=== PATIENT | female | born 1960 | race Caucasian/White ===

== ENCOUNTER → 2019-06-23 16:07 | Outpatient (BNVA) | payer MEDICARE, SELFPAY | PROVIDERS: Family Provider Family Medicine; PCP Family Medicine; Visit Provider Internal Medicine Rheumatology | DX: M05.79 Rheumatoid arthritis with rheumatoid factor of multiple sites without organ or systems involvement (principal); Z79.899 Other long term (current) drug therapy; M16.12 Unilateral primary osteoarthritis, left hip; M47.816 Spondylosis without myelopathy or radiculopathy, lumbar region; J44.9 Chronic obstructive pulmonary disease, unspecified; F17.210 Nicotine dependence, cigarettes, uncomplicated; I10 Essential (primary) hypertension | CPT/HCPCS: 36415; 80076; 82306; 82565; 85651; 86140; 99214 ==

== ENCOUNTER → 2019-06-23 17:46 | Outpatient (BNVA) | payer MEDICARE, SELFPAY | PROVIDERS: Family Provider Family Medicine; PCP Family Medicine; Visit Provider Internal Medicine Rheumatology | DX: Z79.899 Other long term (current) drug therapy (principal); M05.9 Rheumatoid arthritis with rheumatoid factor, unspecified; M05.79 Rheumatoid arthritis with rheumatoid factor of multiple sites without organ or systems involvement; M47.816 Spondylosis without myelopathy or radiculopathy, lumbar region; M16.12 Unilateral primary osteoarthritis, left hip; J44.9 Chronic obstructive pulmonary disease, unspecified; F17.210 Nicotine dependence, cigarettes, uncomplicated; I10 Essential (primary) hypertension | CPT/HCPCS: 36415; 80076; 82306; 82565; 85025; 85651; 86140; 99214 ==

== ENCOUNTER 2019-07-16 09:03 | Outpatient (CLI) | payer MEDICARE, SELFPAY ==
--- NOTE | 2019-07-16 09:10 | XR_ITS ---
WS: [id number] Lumbar spine with flexion, extension, and neutral lateral, 07/16/2019 Clinical Data: SPONDYLOLISTHESIS LUMBAR REGION Comparison: Lumbar spine, 03/30/2019. Findings: There are no compression fractures. There is degenerative disc narrowing at L5-S1. There is a minimal anterior subluxation of L4 on L5 of 0.3 cm. Mild osteoarthritic spurring of all the anterior lumbar vertebral bodies is noted. There is calcification in the wall of the abdominal aorta but no aneurysm is present. No limitation of motion or change in subluxation is seen on flexion or extension. XR/XR lumbar spine f/e only [id number] Impression: 1. Degenerative disc narrowing at L5-S1. 2. Minimal subluxation of L4 on L5 of 0.3 cm. 3. Moderate osteoarthritis of the anterior lumbar vertebral bodies. 4. No limitation of motion or change in subluxation on flexion or extension.
== END 2019-07-16 09:04 | disposition home or self-care (01) ==
LOC: RAD 09:07
PROVIDERS: Family Provider Family Medicine; PCP Family Medicine; Visit Provider Nurse Practitioner
DX: M43.16 Spondylolisthesis, lumbar region (principal); M47.897 Other spondylosis, lumbosacral region; M47.896 Other spondylosis, lumbar region
CPT/HCPCS: 72120

== ENCOUNTER → 2019-09-16 10:09 | Outpatient (BNVA) | payer MEDICARE, SELFPAY | PROVIDERS: Family Provider Family Medicine; PCP Family Medicine; Visit Provider Internal Medicine Rheumatology | DX: Z79.899 Other long term (current) drug therapy (principal) | CPT/HCPCS: 36415; 80076; 82565; 85025; 85651; 86140 ==

== ENCOUNTER → 2019-10-05 09:32 | Outpatient (BNVA) | payer MEDICARE, SELFPAY | PROVIDERS: Family Provider Family Medicine; PCP Family Medicine; Referring Provider Specialist; Visit Provider Anesthesiology Pain Medicine | DX: M54.42 Lumbago with sciatica, left side (principal); M43.16 Spondylolisthesis, lumbar region; M54.9 Dorsalgia, unspecified; F17.210 Nicotine dependence, cigarettes, uncomplicated; Z79.891 Long term (current) use of opiate analgesic | CPT/HCPCS: 99204 ==

== ENCOUNTER → 2019-10-26 13:40 | Outpatient (BNVA) | payer MEDICARE, SELFPAY | PROVIDERS: Family Provider Family Medicine; PCP Family Medicine; Visit Provider Anesthesiology Pain Medicine | DX: M47.816 Spondylosis without myelopathy or radiculopathy, lumbar region (principal); M54.9 Dorsalgia, unspecified; F17.210 Nicotine dependence, cigarettes, uncomplicated | CPT/HCPCS: 64493; 64494; 64495; J2001; J3490 ==

== ENCOUNTER → 2019-11-10 09:47 | Outpatient (BNVA) | payer MEDICARE, SELFPAY | PROVIDERS: Family Provider Family Medicine; PCP Family Medicine; Visit Provider Anesthesiology Pain Medicine | DX: M47.816 Spondylosis without myelopathy or radiculopathy, lumbar region (principal); M51.16 Intervertebral disc disorders with radiculopathy, lumbar region; M43.16 Spondylolisthesis, lumbar region; M51.17 Intervertebral disc disorders with radiculopathy, lumbosacral region; M54.9 Dorsalgia, unspecified; F17.210 Nicotine dependence, cigarettes, uncomplicated; Z79.891 Long term (current) use of opiate analgesic | CPT/HCPCS: 99214 ==

== ENCOUNTER → 2019-11-25 12:57 | Outpatient (BNVA) | payer MEDICARE, SELFPAY | PROVIDERS: Family Provider Family Medicine; PCP Family Medicine; Visit Provider Anesthesiology Pain Medicine | DX: M51.17 Intervertebral disc disorders with radiculopathy, lumbosacral region (principal); M54.9 Dorsalgia, unspecified; F17.210 Nicotine dependence, cigarettes, uncomplicated; Z79.891 Long term (current) use of opiate analgesic | CPT/HCPCS: 64483; 64484; J1040; J3490 ==

== ENCOUNTER → 2019-12-09 09:36 | Outpatient (BNVA) | payer MEDICARE, SELFPAY | PROVIDERS: Family Provider Family Medicine; PCP Family Medicine; Visit Provider Anesthesiology Pain Medicine | DX: M51.16 Intervertebral disc disorders with radiculopathy, lumbar region (principal); M51.17 Intervertebral disc disorders with radiculopathy, lumbosacral region; M43.16 Spondylolisthesis, lumbar region; M47.816 Spondylosis without myelopathy or radiculopathy, lumbar region; M54.9 Dorsalgia, unspecified; F17.210 Nicotine dependence, cigarettes, uncomplicated; Z79.891 Long term (current) use of opiate analgesic | CPT/HCPCS: 99213; 99214 ==

== ENCOUNTER → 2019-12-15 12:34 | Outpatient (BNVA) | payer MEDICARE, SELFPAY | PROVIDERS: Family Provider Family Medicine; PCP Family Medicine; Visit Provider Anesthesiology Pain Medicine | DX: M47.816 Spondylosis without myelopathy or radiculopathy, lumbar region (principal); M54.9 Dorsalgia, unspecified; F17.210 Nicotine dependence, cigarettes, uncomplicated | CPT/HCPCS: 64493; 64494; 64495; J3490 ==

== ENCOUNTER → 2019-12-31 08:54 | Outpatient (BNVA) | payer MEDICARE, SELFPAY | PROVIDERS: Family Provider Family Medicine; PCP Family Medicine; Visit Provider Specialist | DX: G43.711 Chronic migraine without aura, intractable, with status migrainosus (principal); M51.17 Intervertebral disc disorders with radiculopathy, lumbosacral region | CPT/HCPCS: 64615; J0585 ==

== ENCOUNTER → 2020-01-12 09:03 | Outpatient (BNVA) | payer MEDICARE, SELFPAY | PROVIDERS: Family Provider Family Medicine; PCP Family Medicine; Visit Provider Anesthesiology Pain Medicine | DX: M51.16 Intervertebral disc disorders with radiculopathy, lumbar region (principal); M47.816 Spondylosis without myelopathy or radiculopathy, lumbar region; M43.16 Spondylolisthesis, lumbar region; M51.17 Intervertebral disc disorders with radiculopathy, lumbosacral region; M54.9 Dorsalgia, unspecified; F17.210 Nicotine dependence, cigarettes, uncomplicated; Z79.899 Other long term (current) drug therapy | CPT/HCPCS: 99213 ==

== ENCOUNTER → 2020-03-23 13:23 | Outpatient (BNVA) | payer MEDICARE, SELFPAY | PROVIDERS: Family Provider Family Medicine; PCP Family Medicine; Visit Provider Anesthesiology Pain Medicine | DX: M47.816 Spondylosis without myelopathy or radiculopathy, lumbar region (principal); M54.9 Dorsalgia, unspecified; F17.210 Nicotine dependence, cigarettes, uncomplicated | CPT/HCPCS: 64635; 64636; J1030 ==

== ENCOUNTER → 2020-04-08 10:50 | Outpatient (BNVA) | payer MEDICARE, SELFPAY | PROVIDERS: Family Provider Family Medicine; PCP Family Medicine; Visit Provider Anesthesiology Pain Medicine | DX: M51.16 Intervertebral disc disorders with radiculopathy, lumbar region (principal); M43.16 Spondylolisthesis, lumbar region; M47.816 Spondylosis without myelopathy or radiculopathy, lumbar region; M51.17 Intervertebral disc disorders with radiculopathy, lumbosacral region; M54.9 Dorsalgia, unspecified; M25.552 Pain in left hip; F17.210 Nicotine dependence, cigarettes, uncomplicated; Z79.891 Long term (current) use of opiate analgesic | CPT/HCPCS: 99213 ==

== ENCOUNTER → 2020-05-13 10:04 | Outpatient (BNVA) | payer MEDICARE, SELFPAY | PROVIDERS: Family Provider Family Medicine; PCP Family Medicine; Visit Provider Anesthesiology Pain Medicine | DX: G89.29 Other chronic pain (principal); M54.9 Dorsalgia, unspecified; M47.816 Spondylosis without myelopathy or radiculopathy, lumbar region; M51.16 Intervertebral disc disorders with radiculopathy, lumbar region; M51.17 Intervertebral disc disorders with radiculopathy, lumbosacral region; M43.16 Spondylolisthesis, lumbar region; M79.605 Pain in left leg; Z79.899 Other long term (current) drug therapy | CPT/HCPCS: 99214; 99215 ==

== ENCOUNTER → 2020-05-19 13:54 | Outpatient (BNVA) | payer MEDICARE, SELFPAY | PROVIDERS: Family Provider Family Medicine; PCP Family Medicine; Visit Provider Internal Medicine Rheumatology | DX: M05.79 Rheumatoid arthritis with rheumatoid factor of multiple sites without organ or systems involvement (principal); Z79.899 Other long term (current) drug therapy; Z11.1 Encounter for screening for respiratory tuberculosis; M17.0 Bilateral primary osteoarthritis of knee; M47.816 Spondylosis without myelopathy or radiculopathy, lumbar region; M79.18 Myalgia, other site; J44.9 Chronic obstructive pulmonary disease, unspecified; I10 Essential (primary) hypertension; F17.210 Nicotine dependence, cigarettes, uncomplicated | CPT/HCPCS: 36415; 80076; 82565; 85025; 85651; 86140; 86480; 99214 ==

== ENCOUNTER → 2020-05-24 13:20 | Outpatient (BNVA) | payer MEDICARE, SELFPAY | PROVIDERS: Family Provider Family Medicine; PCP Family Medicine; Visit Provider Anesthesiology Pain Medicine | DX: M47.816 Spondylosis without myelopathy or radiculopathy, lumbar region (principal); M54.9 Dorsalgia, unspecified; Z79.891 Long term (current) use of opiate analgesic; F17.210 Nicotine dependence, cigarettes, uncomplicated | CPT/HCPCS: 64493; 64494; 64495; J1040; J3490 ==

== ENCOUNTER → 2020-06-29 09:40 | Outpatient (BNVA) | payer MEDICARE, SELFPAY | PROVIDERS: Family Provider Family Medicine; PCP Family Medicine; Visit Provider Anesthesiology Pain Medicine | DX: M51.16 Intervertebral disc disorders with radiculopathy, lumbar region (principal); M51.17 Intervertebral disc disorders with radiculopathy, lumbosacral region; M54.9 Dorsalgia, unspecified; M47.816 Spondylosis without myelopathy or radiculopathy, lumbar region; F17.210 Nicotine dependence, cigarettes, uncomplicated; Z79.899 Other long term (current) drug therapy; Z79.891 Long term (current) use of opiate analgesic | CPT/HCPCS: 99214 ==

== ENCOUNTER → 2020-07-28 09:56 | Outpatient (BNVA) | payer MEDICARE, SELFPAY | PROVIDERS: Family Provider Family Medicine; PCP Family Medicine; Visit Provider Specialist | DX: G43.711 Chronic migraine without aura, intractable, with status migrainosus (principal); M51.17 Intervertebral disc disorders with radiculopathy, lumbosacral region; F17.210 Nicotine dependence, cigarettes, uncomplicated | CPT/HCPCS: 64615; J0585 ==

== ENCOUNTER 2020-08-24 06:00 | Outpatient (RCR) | payer MEDICARE, SELFPAY | END 2020-09-02 23:59 | disposition home or self-care (01) | LOC: SPT 06:00 | PROVIDERS: PCP Family Medicine; Referring Provider Family Medicine; Visit Provider Family Medicine | DX: M25.512 Pain in left shoulder (principal) | CPT/HCPCS: 97162 ==

== ENCOUNTER 2020-08-24 13:15 | Outpatient (CLI) | payer MEDICARE, SELFPAY ==
--- NOTE | 2020-08-24 13:55 | MR_ITS ---
WS: [id number] MRI LUMBAR SPINE NONCONTRAST HISTORY: BACK PAIN COMPARISON: 04/22/2019 TECHNIQUE: Sagittal and axial multisequence imaging is submitted. L4 anterolisthesis by 4 mm similar to the prior study. No marrow edema or fracture. Mild disc space narrowing and desiccation throughout the lumbar spine. Conus terminates normally at L1-2 disc level. L1-L2: Mild annular disc bulge and fluid in the facet joints. No stenosis. L2-L3: Normal. L3-L4: Normal. L4-L5: Mild annular disc bulging with mild ligamentum flavum disease and facet arthritis. Disc bulge is slightly greatest into the LEFT foramen similar to the prior study with encroachment upon the LEFT L4 nerve root. Mild LEFT foraminal narrowing. No change since the prior study. L5-S1: Mild diffuse annular disc bulging and facet arthritis. Mild LEFT foraminal narrowing. MR/MR lumbar spine wo con* [id number] IMPRESSION: 1. L4 anterolisthesis by 4 mm is stable. 2. Mild LEFT foraminal narrowing at L4-5 due to disc and osteophyte encroachme nt. Small disc protrusion extends into the LEFT L4-5 foramen abutting the L4 ne rve root. Similar to the prior study. 3. Mild LEFT foraminal narrowing at L5-S1.
== END 2020-08-24 13:16 | disposition home or self-care (01) ==
PROVIDERS: PCP Family Medicine; Visit Provider Family Medicine
DX: M51.26 Other intervertebral disc displacement, lumbar region (principal); M25.78 Osteophyte, vertebrae
CPT/HCPCS: 72148

== ENCOUNTER → 2020-10-18 13:00 | Outpatient (BNVA) | payer MEDICARE, SELFPAY | PROVIDERS: PCP Family Medicine; Visit Provider Internal Medicine Rheumatology | DX: M05.79 Rheumatoid arthritis with rheumatoid factor of multiple sites without organ or systems involvement (principal); M15.9 Polyosteoarthritis, unspecified; M47.816 Spondylosis without myelopathy or radiculopathy, lumbar region; Z79.899 Other long term (current) drug therapy; I10 Essential (primary) hypertension; J44.9 Chronic obstructive pulmonary disease, unspecified; F17.210 Nicotine dependence, cigarettes, uncomplicated | CPT/HCPCS: 99214 ==

== ENCOUNTER 2020-10-19 11:46 | Outpatient (CLI) | payer MEDICARE, SELFPAY ==
--- NOTE | 2020-10-19 11:51 | XR_ITS ---
WS: [id number] DEXA (DUAL ENERGY X-RAY ABSORPTIOMETRY) Bone mineral density was performed using a [employer] machine. HISTORY: POST MENOPAUSAL COMPARISON: None available. Lumbar spine BMD (L1-L4): 1.154 g/cm2 T score: -0.2 Z score: 0.0 Total hip BMD: Left: 0.940 g/cm2. T score: -0.5 Z score: -0.3 Right: 0.987 g/cm2. T score: -0.2 Z score: 0.0 10 year probability of a major osteoporotic fracture is 14%. XR/XR DEXA axial skeleton* [id number] IMPRESSION: NORMAL BONE MINERAL DENSITY based upon the WHO classification for females.
== END 2020-10-19 11:47 | disposition home or self-care (01) ==
PROVIDERS: PCP Family Medicine; Visit Provider Family Medicine
DX: Z78.0 Asymptomatic menopausal state (principal)
CPT/HCPCS: 77080

== ENCOUNTER → 2021-01-05 13:56 | Outpatient (BNVA) | payer MEDICARE, SELFPAY | PROVIDERS: PCP Family Medicine; Visit Provider Internal Medicine | DX: Z71.89 Other specified counseling (principal); Z79.899 Other long term (current) drug therapy; M05.79 Rheumatoid arthritis with rheumatoid factor of multiple sites without organ or systems involvement; M47.816 Spondylosis without myelopathy or radiculopathy, lumbar region | CPT/HCPCS: 36415; 80076; 82565; 85025; 86140 ==

== ENCOUNTER → 2021-01-12 11:41 | Outpatient (BNVA) | payer MEDICARE, SELFPAY | PROVIDERS: PCP Family Medicine; Visit Provider Specialist | DX: G43.709 Chronic migraine without aura, not intractable, without status migrainosus (principal); F17.210 Nicotine dependence, cigarettes, uncomplicated | CPT/HCPCS: 64615; J0585 ==

== ENCOUNTER → 2021-03-03 10:40 | Outpatient (BNVA) | payer MEDICARE, SELFPAY | PROVIDERS: PCP Family Medicine; Visit Provider Internal Medicine Rheumatology | DX: M05.79 Rheumatoid arthritis with rheumatoid factor of multiple sites without organ or systems involvement (principal); Z79.899 Other long term (current) drug therapy; M19.90 Unspecified osteoarthritis, unspecified site | CPT/HCPCS: 36415; 80076; 82565; 85025; 86140 ==

== ENCOUNTER 2021-03-13 10:55 | Outpatient (CLI) | payer MEDICARE, SELFPAY ==
--- NOTE | 2021-03-13 11:05 | CT_ITS ---
WS: [id number] LDCT LUNG CANCER SCREENING HISTORY: NICOTINE DEPENDENCE TECHNIQUE: Axial imaging performed from the apices to 1 cm below the costophrenic angles. Coronal and sagittal reformats are submitted with axial MIP series. All CT scans at [facility] use at least one of these dose optimization techniques: automated exposure control; mA and/or kV adjustment per patient size (includes targeted exams where dose is matched to clinical indication); or iterativ e reconstruction. DLP: 56.17 mGy.cm DIvol: 1.58 mGy COMPARISON: None available. Diagnostic quality: Satisfactory Lung Nodules: No pulmonary nodule or endobronchial lesion. Lungs: Very minimal area of atelectasis or scar at the RIGHT costophrenic angle. Heart: Normal size heart. Moderate coronary artery calcification. No pericardial effusion. Other findings: Mild atherosclerosis aorta. No adenopathy. CT/CT lung screening [id number] IMPRESSION: LUNG-RADS: 1-Negative FOLLOW UP: 12 Month: Continue annual screening with LDCT OTHER FINDINGS (S MODIFIER): None.
[2021-03-13 11:48] LABS: Basophils # 0.1 10^3/uL (0.0-0.1); Basophils % 1.4 %; Eosinophils # 0.1 10^3/uL (0.0-0.8); Eosinophils % 3.4 %; Hematocrit 44.7 % (37.0-47.0); Hemoglobin 15.5 g/dL (11.5-15.3); Lymphocytes % 47.7 %; Mean Corpuscular HGB Conc 34.7 g/dL (30.0-36.0); Mean Corpuscular Hemoglobin 32.8 pg (28.0-34.0); Mean Corpuscular Volume 94.5 fl (81-99); Mean Platelet Volume 12.8 fL (7.4-10.4); Monocytes # 0.7 10^3/uL (0.2-0.9); Monocytes % 15.8 %; Neutrophils # 1.31 10^3/uL (1.8-7.7); Neutrophils % 31.5 %; Nucleated Red Blood Cells % 0 %; Platelet Count 142 10^3/cmm (130-400); Red Blood Count 4.73 10^6/uL (4.1-5.3); Red Cell Distribution Width 12.6 % (12.1-15.1); White Blood Count 4.2 10^3/uL (4.0-10.0)
--- NOTE | 2021-03-13 11:50 | MM_ITS ---
WS: [id number] BILATERAL SCREENING DIGITAL MAMMOGRAM WITH CAD HISTORY: SCREENING COMPARISON: 10/16/2013 and 03/17/2000 oh Bilateral CC and MLO views submitted. Computer aided detection analyzed. Breast composition: There are scattered areas of fibroglandular density. No suspicious masses, microc alcifications or architectural distortion. Benign calcifications scattered throughout each breast. MM/[place] [id number] IMPRESSION: BI-RADS: 2-Benign FOLLOW UP: 1 Year Follow-up
== END 2021-03-13 10:56 | disposition home or self-care (01) ==
PROVIDERS: Internal Medicine Rheumatology; PCP Family Medicine; Visit Provider Family Medicine
DX: Z12.31 Encounter for screening mammogram for malignant neoplasm of breast (principal); Z12.2 Encounter for screening for malignant neoplasm of respiratory organs; D72.9 Disorder of white blood cells, unspecified; F17.210 Nicotine dependence, cigarettes, uncomplicated
CPT/HCPCS: 36415; 71271; 77067; 85025

== ENCOUNTER 2021-08-25 16:17 | Outpatient (CLI) | payer MEDICARE, SELFPAY ==
[2021-08-25 17:46] LABS: Basophils # 0.1 10^3/uL (0.0-0.1); Eosinophils # 0.1 10^3/uL (0.0-0.8); Eosinophils % 0.9 %; Hematocrit 48.3 % (37.0-47.0); Hemoglobin 16.8 g/dL (11.5-15.3); Lymphocytes % 42.7 %; Mean Corpuscular HGB Conc 34.8 g/dL (30.0-36.0); Mean Corpuscular Hemoglobin 31.6 pg (28.0-34.0); Monocytes # 0.8 10^3/uL (0.2-0.9); Monocytes % 11.7 %; Neutrophils # 3.03 10^3/uL (1.8-7.7); Neutrophils % 43.4 %; Nucleated Red Blood Cells % 0 %; Platelet Count 169 10^3/cmm (130-400); Red Blood Count 5.31 10^6/uL (4.1-5.3); Red Cell Distribution Width 13.2 % (12.1-15.1)
[2021-08-25 17:56] LABS: Mean Platelet Volume 13.2 fL (7.4-10.4)
[2021-08-25 18:04] LABS: Alanine Aminotransferase 15 U/L (0-33); Albumin Level 4.8 g/dL (3.5-5.2); Alkaline Phosphatase 71 IU/L (35-105); Aspartate Amino Transferase 21 U/L (0-32); Globulin 3.5 g/dL (1.3-4.6); Glomerular Filtration Rate 63.2 mL/min (90-130); Total Bilirubin 0.5 mg/dL (0.15-1.2); Total Protein 8.3 g/dL (6.6-8.7)
== END 2021-08-25 16:18 | disposition home or self-care (01) ==
LOC: LAB 16:22
PROVIDERS: PCP Family Medicine; Visit Provider Internal Medicine Rheumatology
DX: M05.79 Rheumatoid arthritis with rheumatoid factor of multiple sites without organ or systems involvement (principal); M19.90 Unspecified osteoarthritis, unspecified site; Z79.899 Other long term (current) drug therapy
CPT/HCPCS: 80076; 82565; 85025; 86140

== ENCOUNTER → 2021-09-12 11:31 | Outpatient (BNVA) | payer MEDICARE, SELFPAY | PROVIDERS: PCP Family Medicine; Visit Provider Internal Medicine Cardiovascular Disease | DX: R00.2 Palpitations (principal); R00.0 Tachycardia, unspecified; I49.3 Ventricular premature depolarization | CPT/HCPCS: 93225 ==

== ENCOUNTER 2021-12-01 11:46 | Outpatient (CLI) | payer MEDICARE, SELFPAY ==
--- NOTE | 2021-12-01 12:00 | USCV_ITS ---
Nimco Chaparro Age: 61 Gender: F : 1960 Exam Date: 12/01/2021 12:14 Ordering Phys: Chapin Julio MD Technologist: Maddie Mcclain Exam Location: [facility] [place] Indication: PVCs BP: 154 / 84 HR: 57 Rhythm: Sinus Technical Quality: Technically difficult study MEASUREMENTS (Male / Female) Normal Values 2D ECHO LV Diastolic Diameter PLAX 3.4 cm 4.2 - 5.9 / 3.9 - 5.3 cm LV Systolic Diameter PLAX 1.6 cm IVS Diastolic Thickness 1.3 cm 0.6 - 1.0 / 0.6 - 0.9 cm IVS Systolic Thickness 1.5 cm LVPW Diastolic Thickness 0.7 cm 0.6 - 1.0 / 0.6 - 0.9 cm LVPW Systolic Thickness 1.5 cm LV Ejection Fraction 2D Teich 84.6 % LV Ejection Fraction MOD 2C 71.5 % LV Ejection Fraction 2C AL 72.1 % LA Diameter 2.8 cm LA Width 1.9 cm LA Height 4.6 cm RA Width 3.2 cm RA Height 3.8 cm IVC Diameter 1.2 cm DOPPLER AV Peak Velocity 104.0 cm/s LVOT Peak Velocity 108.0 cm/s MV Peak Velocity 96.0 cm/s MV Area PHT 3.9 cm squared Mitral E to A Ratio 1.0 MV E' Velocity 49.5 cm/s Mitral E to MV E' Ratio 11.2 Mitral E to LV E' Lateral Ratio 10.9 Mitral E to LV E' Septal Ratio 11.5 TR Peak Velocity 92.0 cm/s TR Peak Gradient 3.4 mmHg Right Atrial Pressure 3.0 mmHg Pulmonary Artery Systolic Pressu 6.4 mmHg PV Peak Velocity 73.0 cm/s RV Acceleration Time 0.1 s FINDINGS Left Ventricle Somewhat technically difficult study. Limited parasternal views. Normal left ventricular size and function. Ejection fraction 65%. Normal diastolic function. Right Ventricle The right ventricle is normal in size and function. Normal right ventricular systolic pressure. Right Atrium The right atrium is normal in size. Left Atrium The left atrium is normal in size. Mitral Valve Structurally normal mitral valve without significant stenosis or prolapse. There is no mitral regurgitation. Aortic Valve Tricuspid Valve Structurally normal tricuspid valve without significant stenosis or regurgitation. Pulmonary artery systolic pressure is normal. Pulmonic Valve Structurally normal pulmonic valve without significant stenosis. There is no pulmonic regurgitation. Pericardium Normal pericardium without effusion. Aorta Normal ascending aorta dimension. IVC The inferior vena cava pulmonary and hepatic veins appear normal. CONCLUSIONS Somewhat technically difficult study. Limited parasternal views. Normal left ventricular size and function. Ejection fraction 65%. Normal diastolic function. Normal transthoracic echocardiogram. There are no prior echocardiogram studies to compare. Dr. Beto Kinsey MD (Electronically Signed) Final Date: 01 December 2021 14:11 S
== END 2021-12-01 11:47 | disposition home or self-care (01) ==
PROVIDERS: PCP Family Medicine; Visit Provider Family Medicine
DX: I49.3 Ventricular premature depolarization (principal)
CPT/HCPCS: 93306

== ENCOUNTER → 2021-12-07 12:02 | Outpatient (BNVA) | payer MEDICARE, SELFPAY | PROVIDERS: PCP Family Medicine; Visit Provider Specialist | DX: G43.711 Chronic migraine without aura, intractable, with status migrainosus (principal) | CPT/HCPCS: 64615; J0585 ==

== ENCOUNTER → 2022-01-23 09:41 | Outpatient (BNVA) | payer MEDICARE, SELFPAY | PROVIDERS: PCP Family Medicine; Visit Provider Internal Medicine Rheumatology | DX: M05.79 Rheumatoid arthritis with rheumatoid factor of multiple sites without organ or systems involvement (principal); Z79.899 Other long term (current) drug therapy; Z71.89 Other specified counseling; M15.9 Polyosteoarthritis, unspecified; I10 Essential (primary) hypertension; J44.9 Chronic obstructive pulmonary disease, unspecified; Z72.0 Tobacco use; M79.18 Myalgia, other site; F31.9 Bipolar disorder, unspecified; D47.2 Monoclonal gammopathy | CPT/HCPCS: 36415; 73502; 80076; 82565; 85025; 86140; 99214 ==

== ENCOUNTER → 2022-03-08 10:56 | Outpatient (BNVA) | payer MEDICARE, SELFPAY | PROVIDERS: PCP Family Medicine; Visit Provider Specialist | DX: G43.711 Chronic migraine without aura, intractable, with status migrainosus (principal) | CPT/HCPCS: 64615 ==

== ENCOUNTER 2022-03-26 07:59 | Outpatient (CLI) | payer MEDICARE, SELFPAY ==
--- NOTE | 2022-03-26 08:09 | CT_ITS ---
WS: [id number] LDCT LUNG CANCER SCREENING TECHNIQUE: Noncontrast CT of the chest with coronal and sagittal reformatted images. CLINICAL INFORMATION: NICOTINE DEPENDENCE, CIGARETTES COMPARISON: CT March 13, 2021 DLP: 78.79 mGy.cm DIvol: Mean CTDIvol: 1.60 (mGy) All CT scans at [facility] use at least one of these dose optimization techniques: automat ed exposure control; mA and/or kV adjustment per patient size (includes targeted exams where dose is matched to clinical indication); or iterative reconstruction. FINDINGS: Moderate chronic emphysematous changes. 3 mm noncalcified nodule RIGHT upper lobe subpleural. Slight hazy opacity or fibrosis subpleural RIGHT upper lobe laterally. No acute pulmonary infiltrates. No focal pneumonia or pleural fluid. Normal caliber thoracic aorta. A ortic calcification. Coronary calcification. No axillary lymphadenopathy. No mediastinal or hilar lym phadenopathy. Adrenal glands are normal. Fatty atrophy of the pancreas. CT/CT lung screening [id number] IMPRESSION: LUNG-RADS: 2-Benign Appearance or Behavior FOLLOW UP: 12 Month: Continue annual screening with LDCT
== END 2022-03-26 08:00 | disposition home or self-care (01) ==
PROVIDERS: PCP Family Medicine; Visit Provider Family Medicine
DX: Z12.2 Encounter for screening for malignant neoplasm of respiratory organs (principal); F17.210 Nicotine dependence, cigarettes, uncomplicated
CPT/HCPCS: 71271

== ENCOUNTER 2022-03-28 12:04 | Outpatient (CLI) | payer MEDICARE, SELFPAY ==
[2022-03-28 12:31] LABS: Basophils # 0.1 10^3/uL (0.0-0.1); Basophils % 1.5 %; Eosinophils # 0.1 10^3/uL (0.0-0.8); Hematocrit 45.7 % (37.0-47.0); Hemoglobin 15.6 g/dL (11.5-15.3); Lymphocytes # 1.5 10^3/uL (0.8-4.8); Lymphocytes % 28.8 %; Mean Corpuscular HGB Conc 34.1 g/dL (30.0-36.0); Mean Corpuscular Hemoglobin 31.7 pg (28.0-34.0); Mean Corpuscular Volume 92.9 fl (81-99); Mean Platelet Volume 12.4 fL (7.4-10.4); Monocytes # 0.3 10^3/uL (0.2-0.9); Monocytes % 4.8 %; Neutrophils # 3.29 10^3/uL (1.8-7.7); Neutrophils % 63.7 %; Nucleated Red Blood Cells % 0 %; Platelet Count 153 10^3/cmm (130-400); Red Blood Count 4.92 10^6/uL (4.1-5.3); Red Cell Distribution Width 12.5 % (12.1-15.1); White Blood Count 5.2 10^3/uL (4.0-10.0)
[2022-03-28 12:33] LABS: Erythrocyte Sedimentation Rate 14 mm/hr (0-15)
[2022-03-28 12:35] VITALS: BP 150/94; PULSE 65; RESP 18; TEMP 36.1; O2SAT 94
[2022-03-28 12:49] LABS: Alanine Aminotransferase 10 U/L (0-33); Albumin Level 4.1 g/dL (3.5-5.2); Alkaline Phosphatase 82 U/L (35-105); Aspartate Amino Transferase 15 U/L (0-32); Globulin 3.7 g/dL (1.3-4.6); Glomerular Filtration Rate 63.2 mL/min (90-130); Total Bilirubin 0.3 mg/dL (0.15-1.2); Total Protein 7.8 g/dL (6.6-8.7)
[2022-03-28] MEDS: sodium chloride 0.9% 250 ML 50 ML IV (12:59)
[2022-03-28] MEDS: acetaminophen 325 mg Tablet 650 MG PO (13:00)
[2022-03-28] MEDS: diphenhydrAMINE 50 mg/mL SDV 1mL 25 MG IVP (13:01)
[2022-03-28 14:44] VITALS: BP 161/95; PULSE 60; RESP 18; TEMP 36.2; O2SAT 94
== END 2022-03-28 12:05 | disposition home or self-care (01) ==
PROVIDERS: PCP Family Medicine; Visit Provider Internal Medicine Rheumatology
DX: M05.79 Rheumatoid arthritis with rheumatoid factor of multiple sites without organ or systems involvement (principal)
CPT/HCPCS: 80076; 82565; 85025; 85651; 96365; 96375; J1200; J2920; J3262; J7050

== ENCOUNTER → 2022-04-17 10:34 | Outpatient (BNVA) | payer MEDICARE, SELFPAY | PROVIDERS: PCP Family Medicine; Visit Provider Internal Medicine Rheumatology | DX: M06.349 Rheumatoid nodule, unspecified hand (principal); M05.79 Rheumatoid arthritis with rheumatoid factor of multiple sites without organ or systems involvement; Z79.899 Other long term (current) drug therapy; Z71.89 Other specified counseling; I10 Essential (primary) hypertension; J44.9 Chronic obstructive pulmonary disease, unspecified; Z72.0 Tobacco use; M79.18 Myalgia, other site; F31.9 Bipolar disorder, unspecified; D47.2 Monoclonal gammopathy | CPT/HCPCS: 73130; 99214 ==

== ENCOUNTER 2022-05-08 11:48 | Outpatient (CLI) | payer OTHER, SELFPAY ==
[2022-05-08 12:14] VITALS: BP 157/109; PULSE 56; RESP 18; TEMP 36.1; O2SAT 99
[2022-05-08 12:17] LABS: Basophils # 0.1 10^3/uL (0.0-0.1); Basophils % 1.1 %; Eosinophils # 0.1 10^3/uL (0.0-0.8); Eosinophils % 2.4 %; Hematocrit 46.7 % (37.0-47.0); Hemoglobin 16.2 g/dL (11.5-15.3); Lymphocytes # 2.1 10^3/uL (0.8-4.8); Lymphocytes % 39.2 %; Mean Corpuscular HGB Conc 34.7 g/dL (30.0-36.0); Mean Corpuscular Hemoglobin 31.6 pg (28.0-34.0); Mean Corpuscular Volume 91.2 fl (81-99); Mean Platelet Volume 11.8 fL (7.4-10.4); Monocytes # 0.5 10^3/uL (0.2-0.9); Monocytes % 9.6 %; Neutrophils # 2.53 10^3/uL (1.8-7.7); Neutrophils % 47.5 %; Nucleated Red Blood Cells % 0 %; Platelet Count 168 10^3/cmm (130-400); Red Blood Count 5.12 10^6/uL (4.1-5.3); Red Cell Distribution Width 13.6 % (12.1-15.1); White Blood Count 5.3 10^3/uL (4.0-10.0)
[2022-05-08 12:26] LABS: Erythrocyte Sedimentation Rate 1 mm/hr (0-15)
[2022-05-08 12:33] LABS: Alanine Aminotransferase 26 U/L (0-33); Albumin Level 4.7 g/dL (3.5-5.2); Alkaline Phosphatase 76 U/L (35-105); Aspartate Amino Transferase 19 U/L (0-32); Creatinine Clr Calc Pharmacy 84.2169; Globulin 2.9 g/dL (1.3-4.6); Glomerular Filtration Rate 72.4 mL/min (90-130); Total Bilirubin 0.4 mg/dL (0.15-1.2); Total Protein 7.6 g/dL (6.6-8.7)
[2022-05-08] MEDS: sodium chloride 0.9% 250 ML 50 ML IV (12:34)
[2022-05-08] MEDS: acetaminophen 325 mg Tablet 650 MG PO (12:34)
[2022-05-08] MEDS: diphenhydrAMINE 50 mg/mL SDV 1mL 25 MG IVP (12:35)
[2022-05-08 14:11] VITALS: BP 172/98; PULSE 65; RESP 18; TEMP 36.2; O2SAT 93
== END 2022-05-08 11:49 | disposition home or self-care (01) ==
PROVIDERS: PCP Family Medicine; Visit Provider Internal Medicine Rheumatology
DX: M05.79 Rheumatoid arthritis with rheumatoid factor of multiple sites without organ or systems involvement (principal)
CPT/HCPCS: 80076; 82565; 85025; 85651; 96365; 96375; J1200; J2920; J3262; J7050

== ENCOUNTER → 2022-06-28 08:55 | Outpatient (BNVA) | payer MEDICARE, SELFPAY | PROVIDERS: PCP Family Medicine; Visit Provider Specialist | DX: G43.711 Chronic migraine without aura, intractable, with status migrainosus (principal) | CPT/HCPCS: 64615; J0585 ==

== ENCOUNTER 2022-07-03 13:14 | Oncology outpatient (recurring) (ONCR) | payer MEDICARE, SELFPAY | END 2022-07-03 23:59 | disposition home or self-care (01) | LOC: ONCMED 13:14 | PROVIDERS: PCP Family Medicine; Visit Provider Internal Medicine Rheumatology | DX: Z53.9 Procedure and treatment not carried out, unspecified reason (principal) ==

== ENCOUNTER 2022-07-31 10:24 | Oncology outpatient (recurring) (ONCR) | payer MEDICARE, SELFPAY ==
[2022-07-31 10:48] VITALS: BMI 34.0
[2022-07-31 11:21] LABS: Basophils # 0.1 10^3/uL (0.0-0.1); Basophils % 1.3 %; Eosinophils # 0.1 10^3/uL (0.0-0.8); Hematocrit 43.1 % (37.0-47.0); Hemoglobin 14.6 g/dL (11.5-15.3); Lymphocytes # 2.1 10^3/uL (0.8-4.8); Lymphocytes % 38.9 %; Mean Corpuscular HGB Conc 33.9 g/dL (30.0-36.0); Mean Corpuscular Hemoglobin 30.6 pg (28.0-34.0); Mean Corpuscular Volume 90.4 fl (81-99); Mean Platelet Volume 12.3 fL (7.4-10.4); Monocytes # 0.5 10^3/uL (0.2-0.9); Monocytes % 9.9 %; Neutrophils # 2.59 10^3/uL (1.8-7.7); Neutrophils % 47.7 %; Nucleated Red Blood Cells % 0 %; Platelet Count 148 10^3/cmm (130-400); Red Blood Count 4.77 10^6/uL (4.1-5.3); Red Cell Distribution Width 12.9 % (12.1-15.1); White Blood Count 5.4 10^3/uL (4.0-10.0)
[2022-07-31 11:30] LABS: Erythrocyte Sedimentation Rate 21 mm/hr (0-15)
[2022-07-31 11:41] LABS: Alanine Aminotransferase 9 U/L (0-33); Albumin Level 4.2 g/dL (3.5-5.2); Alkaline Phosphatase 73 U/L (35-105); Aspartate Amino Transferase 17 U/L (0-32); Globulin 3.3 g/dL (1.3-4.6); Total Bilirubin 0.4 mg/dL (0.15-1.2); Total Protein 7.5 g/dL (6.6-8.7)
[2022-07-31] MEDS: sodium chloride 0.9% 250 ML 75 ML IV (11:41)
[2022-07-31] MEDS: acetaminophen 325 mg Tablet 650 MG PO (11:45)
[2022-07-31] MEDS: diphenhydrAMINE 50 mg/mL SDV 1mL 25 MG IVP (11:46)
[2022-07-31 12:02] VITALS: BP 128/82; PULSE 60; RESP 16; TEMP 36.3; O2SAT 94
[2022-07-31 13:45] VITALS: BP 133/84; PULSE 64; RESP 18; TEMP 36.3; O2SAT 93
== END 2022-08-03 23:59 | disposition home or self-care (01) ==
PROVIDERS: PCP Family Medicine; Visit Provider Internal Medicine Rheumatology
DX: M05.79 Rheumatoid arthritis with rheumatoid factor of multiple sites without organ or systems involvement (principal); Z79.899 Other long term (current) drug therapy
CPT/HCPCS: 80076; 82565; 85025; 85651; 96365; 96375; J1200; J2920; J3262; J7050

== ENCOUNTER 2022-08-28 11:06 | Oncology outpatient (recurring) (ONCR) | payer MEDICARE, SELFPAY ==
[2022-08-28 11:22] VITALS: BP 150/101; PULSE 80; TEMP 36.6; O2SAT 98
[2022-08-28] MEDS: sodium chloride 0.9% 250 ML 100 ML IV (11:52)
[2022-08-28] MEDS: acetaminophen 325 mg Tablet 650 MG PO (11:54)
[2022-08-28] MEDS: diphenhydrAMINE 50 mg/mL SDV 1mL 25 MG IVP (11:55)
[2022-08-28 13:48] VITALS: BP 143/86; PULSE 66; TEMP 36.1; O2SAT 95
== END 2022-09-02 23:59 | disposition home or self-care (01) ==
PROVIDERS: PCP Family Medicine; Visit Provider Internal Medicine Rheumatology
DX: M05.89 Other rheumatoid arthritis with rheumatoid factor of multiple sites (principal)
CPT/HCPCS: 96365; 96375; 96413; J1200; J2920; J3262; J7050

== ENCOUNTER 2022-09-25 10:56 | Oncology outpatient (recurring) (ONCR) | payer MEDICARE, SELFPAY ==
[2022-09-25 11:32] VITALS: BP 108/64; PULSE 54; RESP 18; TEMP 36.1; O2SAT 96
[2022-09-25] MEDS: acetaminophen 325 mg Tablet 650 MG PO (11:49)
[2022-09-25] MEDS: sodium chloride 0.9% 250 ML 50 ML IV (11:49)
[2022-09-25] MEDS: diphenhydrAMINE 50 mg/mL SDV 1mL 25 MG IVP (11:51)
[2022-09-25] MEDS: dexamethasone 10 mg/mL INJ 6 MG IVP (11:54)
[2022-09-25 12:08] LABS: Basophils # 0.1 10^3/uL (0.0-0.1); Basophils % 1.9 %; Eosinophils # 0.1 10^3/uL (0.0-0.8); Eosinophils % 1.6 %; Hematocrit 41.9 % (37.0-47.0); Hemoglobin 13.8 g/dL (11.5-15.3); Lymphocytes # 1.3 10^3/uL (0.8-4.8); Lymphocytes % 43.2 %; Mean Corpuscular HGB Conc 32.9 g/dL (30.0-36.0); Mean Corpuscular Volume 94.2 fl (81-99); Mean Platelet Volume 13.2 fL (7.4-10.4); Monocytes # 0.3 10^3/uL (0.2-0.9); Monocytes % 8.1 %; Neutrophils # 1.38 10^3/uL (1.8-7.7); Neutrophils % 44.9 %; Nucleated Red Blood Cells % 0 %; Platelet Count 110 10^3/cmm (130-400); Red Blood Count 4.45 10^6/uL (4.1-5.3); Red Cell Distribution Width 14.7 % (12.1-15.1); White Blood Count 3.1 10^3/uL (4.0-10.0)
[2022-09-25 12:34] LABS: Alanine Aminotransferase 17 U/L (0-33); Albumin Level 4.6 g/dL (3.5-5.2); Alkaline Phosphatase 65 U/L (35-105); Aspartate Amino Transferase 19 U/L (0-32); Globulin 2.5 g/dL (1.3-4.6); Total Bilirubin 0.5 mg/dL (0.15-1.2); Total Protein 7.1 g/dL (6.6-8.7)
[2022-09-25 12:43] LABS: Erythrocyte Sedimentation Rate < 1 mm/hr (0-15)
[2022-09-25 13:33] VITALS: BP 159/93; PULSE 57; RESP 18; TEMP 36.1; O2SAT 96
== END 2022-10-03 23:59 | disposition home or self-care (01) ==
PROVIDERS: PCP Family Medicine; Visit Provider Internal Medicine Rheumatology
DX: M05.79 Rheumatoid arthritis with rheumatoid factor of multiple sites without organ or systems involvement (principal)
CPT/HCPCS: 80076; 82565; 85025; 85651; 96365; 96375; 96413; J1100; J1200; J3262; J7050

== ENCOUNTER 2022-10-16 09:12 | Outpatient (CLI) | payer MEDICARE, SELFPAY ==
--- NOTE | 2022-10-16 10:00 | USCV_ITS ---
Nimco Chaparro Age: 62 Gender: F : 1960 Exam Date: 10/16/2022 10:48 Ordering Phys: Chapin Julio MD Technologist: Exam Location: [facility] [place] Indication: leg pain RIGHT LEFT Brachial 173.00 mmHg Brachial 169.00 mmHg Pressure (mmHg) Waveform Pressure (mmHg) Waveform 166.00 JAVA J2EE ARCHITECT 177.00 155.00 DPA 158.00 0.96 Ankle/Brachial Index 1.02 114.00 Pre-Exercise Toe Pressure 106.00 0.66 Pre-Exercise Toe/Brachial Index 0.61 FINDINGS Resting MELVIN of 0.96 on the right and 1.02 on the left Resting TBI of 0.66 on the right and 0.61 on the left CONCLUSIONS Normal resting ABIs bilaterally. Slightly diminished resting TBIs bilaterally. Features suggestive of mild peripheral artery disease, possibly involving the distal vessels Dr Suly May MD [facility] (Electronically Signed) Final Date: 30 October 2022 09:35 S
[2022-10-16 10:14] VITALS: PULSE 77; RESP 18; O2SAT 99
[2022-10-16] MEDS: albuterol 2.5 mg/3 mL Neb INHALATION (10:14)
[2022-10-16 10:19] VITALS: PULSE 76
== END 2022-10-16 09:13 | disposition home or self-care (01) ==
LOC: RAD 09:12
PROVIDERS: PCP Family Medicine; Visit Provider Family Medicine
DX: I73.9 Peripheral vascular disease, unspecified (principal); J44.9 Chronic obstructive pulmonary disease, unspecified; M79.605 Pain in left leg; M79.604 Pain in right leg
CPT/HCPCS: 93922; 94060; 94726; 94729; J7613

== ENCOUNTER → 2022-10-18 12:49 | Outpatient (BNVA) | payer MEDICARE, SELFPAY | PROVIDERS: PCP Family Medicine; Referring Provider Specialist; Visit Provider Specialist | DX: G43.711 Chronic migraine without aura, intractable, with status migrainosus (principal) | CPT/HCPCS: 64615; J0585 ==

== ENCOUNTER → 2022-11-16 08:18 | Outpatient (BNVA) | payer MEDICARE, SELFPAY | PROVIDERS: PCP Family Medicine; Visit Provider Nurse Practitioner Family | DX: L57.0 Actinic keratosis (principal); L70.5 Acne excoriee; D22.5 Melanocytic nevi of trunk; L57.8 Other skin changes due to chronic exposure to nonionizing radiation; L81.4 Other melanin hyperpigmentation | CPT/HCPCS: 17000; 17003; 99214 ==

== ENCOUNTER 2022-11-23 11:45 | Emergency (ER) | payer MEDICARE, SELFPAY ==
[2022-11-23 12:04] VITALS: BP 123/82; PULSE 74; RESP 16; TEMP 36.4; O2SAT 96; BMI 32.4
[2022-11-23 13:16] LABS: Basophils # 0.1 10^3/uL (0.0-0.1); Basophils % 1.1 %; Eosinophils # 0.2 10^3/uL (0.0-0.8); Eosinophils % 2.4 %; Hemoglobin 14.8 g/dL (11.5-15.3); Lymphocytes # 1.8 10^3/uL (0.8-4.8); Lymphocytes % 25.2 %; Mean Corpuscular HGB Conc 33.6 g/dL (30.0-36.0); Mean Corpuscular Hemoglobin 30.8 pg (28.0-34.0); Mean Corpuscular Volume 91.5 fl (81-99); Mean Platelet Volume 12.1 fL (7.4-10.4); Monocytes # 0.5 10^3/uL (0.2-0.9); Monocytes % 7.3 %; Neutrophils % 63.7 %; Nucleated Red Blood Cells % 0 %; Platelet Count 223 10^3/cmm (130-400); Red Blood Count 4.81 10^6/uL (4.1-5.3); Red Cell Distribution Width 12.9 % (12.1-15.1); White Blood Count 7.2 10^3/uL (4.0-10.0)
--- NOTE | 2022-11-23 13:18 | XRR_ITS ---
PROCEDURE INFORMATION: Exam: XR Lumbosacral Spine Exam date and time: 11/23/2022 2:02 PM Age: 62 years old Clinical indication: Low back pain TECHNIQUE: Imaging protocol: Radiologic exam of the lumbosacral spine. Views: 2 or 3 views. COMPARISON: CR XR lumbar spine min 4V [id number] 08/01/2020 2:23 PM FINDINGS: Bones/joints: No acute fracture. Mild progression of grade 1 anterolisthesis of L4 on L5 now measuring 7 mm. Otherwise normal alignment. Mild progression of intervertebral disc space narrowing and osteophyte formation at L5-S1 greater than L4-L5. Mild osteophyte formation of the remaining lumbar spine. Lower lumbar spine facet arthrosis greatest at L4-L5. Soft tissues: Unremarkable. Intraperitoneal space: Lower pelvis mesh plugs. Vasculature: Aortoiliac atherosclerotic calcification. XR/XR lumbar spine 2-3V* [id number] IMPRESSION: Mild progression of lumbar spine degenerative changes greatest at L5-S1 and grade 1 anterolisthesis of L4 on L5.
--- NOTE | 2022-11-23 13:22 | W.ED.BACK ---
HPI - Back Pain/Injury General: Chief Complaint: Back Pain/Injury Stated Complaint: Sumanth sent lower back pain, possible infection Time Seen by Provider: 11/23/22 13:02 History of Present Illness: Patient is a 62-year-old female who comes to the ED with low back pain. Patient has chronic lower back pain and currently sees pain management and spine doctor at [facility]. Patient had a cortisone shot lumbar spine approximately 1 month ago. Patient says shot did not give her any relief. She talked with her PCP Dr. Julio and he told her to come here to the ED for further evaluation and to rule out any infection after lumbar injection. Patient currently has 8 out of 10 pain in her lower back. She says the pain starts at her tailbone and moves up into her lower spine. She occasionally has some pain that radiates down into right leg/posterior thigh. Denies any recent injury or trauma. Denies any cauda equina symptoms or fevers. Associated symptoms: Deny abdominal pain, chills, dysuria, fatigue, fever(s), hematuria, nausea or vomiting Review of Systems Const: Denies: fever(s), chills or fatigue Eyes: Denies: change in vision or eye discomfort ENMT: Denies: throat pain, odynophagia, nasal discharge or nasal congestion Card: Denies: chest pain, palpitations, edema, swelling of feet/ankles, dyspnea on exertion or orthopnea Resp: Denies: dyspnea, productive cough or non-productive cough GI: Denies: abdominal pain, nausea, vomiting, diarrhea, constipation or hematochezia : Denies: flank pain, dysuria or hematuria Musc: Reports: back pain; Denies: neck pain or extremity swelling Skin/Breast: Denies: rash or new lesions Neuro: Denies: headache(s), numbness in extremities or weakness in extremities PFSH ED PFSH: Medical History Chronic migraine without aura, intractable, with status migrainosus High risk medication use High risk medication use Immunization counseling Intervertebral disc disorder with radiculopathy of lumbar region Intervertebral disc disorder with radiculopathy of lumbosacral region Rheumatoid arthritis, seropositive, multiple sites Spondylolisthesis, lumbar region Surgical History History of arthroplasty of right knee (~10/2017) total, Dr. Martin History of decompression of ulnar nerve 07/29/2008 Dr. Riley Dos Santos: Right History of hysterectomy (~1999) non cancerous, ovaries remain Family History Mother Lung cancer age 58 Father Lupus anticoagulant disorder CAD (coronary artery disease) age 70 Grandmother CAD (coronary artery disease) Grandfather CAD (coronary artery disease) Social History Smoking and tobacco status: never smoked Alcohol intake: never Substance/Drug Use: current Caregiver/support person: Yes Household members: spouse Marital status: Current occupational status: disabled Physical Exam Const: COMMON NORMALS: patient oriented x3 and alert HENMT: COMMON NORMALS: normocephalic HEAD & SCALP: normocephalic MOUTH: Normal oral and palatal mucosa present THROAT: posterior oropharynx normal and uvula midline Neck/C-Spine: COMMON NORMALS: supple GENERAL: Yes normal visual inspection Resp: COMMON NORMALS: normal respiratory effort, No retractions, No use of accessory muscles and clear to auscultation bilaterally AUSCULTATION: clear to auscultation bilaterally Cardio: COMMON NORMALS: regular rate, regular rhythm, S1 normal heart sound present, S2 normal heart sound present, No gallops present (Cardio), No clicks present (Cardio), No murmurs present (Cardio) and Peripheral pulses 2+ throughout RATE: regular rate RHYTHM: regular rhythm HEART SOUNDS: S1 normal heart sound present and S2 normal heart sound present PERIPHERAL PULSES: Peripheral pulses 2+ throughout GI: COMMON NORMALS: Normal to inspection, nondistended, normoactive bowel sounds present, Soft to palpation, non-tender and no masses PALPATION: Yes Soft to palpation : COMMON NORMALS: Yes no CVA tenderness BLADDER/KIDNEY EXAM: Yes no CVA tenderness Back/Pelvis: COMMON NORMALS: no CVA tenderness LUMBAR SPINE/LOWER BACK: Yes lumbar spinal tenderness and Yes paraspinal muscle tenderness Lumbar paraspinal muscle tenderness: bilateral Bilateral lumbar paraspinal muscle tenderness: L4 and L5 OTHER: Upon inspection of the lumbar spine there is no signs of infection on skin. Extremity: COMMON NORMALS: normal to inspection Neuro: COMMON NORMALS: patient oriented x3 SENSORIUM/ORIENTATION: Yes alert GAIT: Yes Normal gait present Skin: GENERAL SKIN EXAM: dry skin Course Vital Signs: Vital signs: Vital Signs Temperature 97.5 F L 11/23/22 12:04 Pulse Rate 74 11/23/22 12:04 Respiratory Rate 16 11/23/22 13:35 Blood Pressure 123/82 11/23/22 12:04 Pulse Oximetry 96 11/23/22 13:35 Oxygen Delivery Me thod Room Air 11/23/22 12:04 MDM - Back Pain/Injury Medical Decision Making Patient is a 62-year-old female who comes to the ED with low back pain. Patient has chronic lower back pain and currently sees pain management and spine doctor at [facility]. Patient had a cortisone shot lumbar spine approximately 1 month ago. Patient says shot did not give her any relief. She talked with her PCP Dr. Julio and he told her to come here to the ED for further evaluation and to rule out any infection after lumbar injection. Patient currently has 8 out of 10 pain in her lower back. She says the pain starts at her tailbone and moves up into her lower spine. She occasionally has some pain that radiates down into right leg/posterior thigh. Denies any recent injury or trauma. Denies any cauda equina symptoms or fevers. Vitals are stable. Patient appears nontoxic and acute distress or pain. Patient has some lumbar spinal tenderness and bilateral lumbar paraspinal spinal muscle tenderness. No signs of cellulitis on visual inspection of skin. X-ray of lumbar spine showed mild progression of lumbar spine degenerative changes greatest at L5-S1. No other acute findings noted. White blood cell count 7.2 and the rest of CBC and CMP are unremarkable. UA was unremarkable. CRP is slightly elevated at 15.1 and ESR is elevated slightly at 16. Patient was given IM Decadron, morphine, Zofran and p.o. Robaxin while here in the ED. No concerns for any vertebral infection. Patient was diagnosed with chronic lower back pain and was stable for discharge home. She was sent home with a prescription for hydrocodone and told to follow-up with her spine surgeon at next scheduled appointment. Labs I reviewed the patient's lab results. 11/23/22 12:58 11/23/22 12:58 Radiology Impressions Lumbar Spine X-Ray 11/23/22 13:18 IMPRESSION: Mild progression of lumbar spine degenerative changes greatest at L5-S1 and grade 1 anterolisthesis of L4 on L5. Laboratory Results WBC 7.2 10^3/uL (4.0-10.0) 11/23/22 12:58 RBC 4.81 10^6/uL (4.1-5.3) 11/23/22 12:58 Hgb 14.8 g/dL (11.5-15.3) 11/23/22 12:58 Hct 44.0 % (37.0-47.0) 11/23/22 12:58 MCV 91.5 fl (81-99) 11/23/22 12:58 MCH 30.8 pg (28.0-34.0) 11/23/22 12:58 MCHC 33.6 g/dL (30.0-36.0) 11/23/22 12:58 RDW 12.9 % (12.1-15.1) 11/23/22 12:58 Plt Count 223 10^3/cmm (130-400) 11/23/22 12:58 MPV 12.1 fL (7.4-10.4) H 11/23/22 12:58 Neut % (Auto) 63.7 % 11/23/22 12:58 Lymph % (Auto) 25.2 % 11/23/22 12:58 Gilmer % (Auto) 7.3 % 11/23/22 12:58 Eos % (Auto) 2.4 % 11/23/22 12:58 Baso % (Auto) 1.1 % 11/23/22 12:58 Neut # (Auto) 4.60 10^3/uL (1.8-7.7) 11/23/22 12:58 Lymph # (Auto) 1.8 10^3/uL (0.8-4.8) 11/23/22 12:58 Gilmer # (Auto) 0.5 10^3/uL (0.2-0.9) 11/23/22 12:58 Eos # (Auto) 0.2 10^3/uL (0.0-0.8) 11/23/22 12:58 Baso # (Auto) 0.1 10^3/uL (0.0-0.1) 11/23/22 12:58 Nucleated RBC % (auto) 0 % 11/23/22 12:58 Nucleated RBCs # 0.0 /100WBC 11/23/22 12:58 ESR 16 mm/hr (0-15) H 11/23/22 12:58 Sodium 136 mmol/L (136-145) 11/23/22 12:58 Potassium 4.1 mmol/L (3.5-5.1) 11/23/22 12:58 Chloride 100 mmol/L (98-107) 11/23/22 12:58 Carbon Dioxide 24 mmol/L (22-29) 11/23/22 12:58 Anion Gap 16.1 (5-19) 11/23/22 12:58 BUN 15 mg/dL (8-23) 11/23/22 12:58 Creatinine 0.9 mg/dL (0.5-0.9) 11/23/22 12:58 GFR Calculation 63.0 mL/min (90-130) L 11/23/22 12:58 Glucose 96 mg/dL (65-115) 11/23/22 12:58 Calculated Osmolality 283 mOsm/kg (285-295) L 11/23/22 12:58 Calcium 9.7 mg/dL (8.5-10.5) 11/23/22 12:58 C-Reactive Protein 15.1 mg/L (0.0-4.9) H 11/23/22 12:58 Urine Color Yellow (Yellow) 11/23/22 14:53 Urine Appearance Clear (CLEAR) 11/23/22 14:53 Urine pH 6 (5-7) 11/23/22 14:53 Ur Specific [place] 1.015 (1.005-1.030) 11/23/22 14:53 Urine Protein Neg (Negative) 11/23/22 14:53 Urine Glucose (UA) Norm (Normal) 11/23/22 14:53 Urine Ketones Negative (Negative) 11/23/22 14:53 Urine Blood Neg (Negative) 11/23/22 14:53 Urine Nitrate Negative (Negative) 11/23/22 14:53 Urine Bilirubin Neg (Negative) 11/23/22 14:53 Urine Urobilinogen Norm mg/dL (Negative) 11/23/22 14:53 Ur Leukocyte Esterase Negative (Negative) 11/23/22 14:53 Discharge Plan Discharge Patient Disposition: Home Clinical Impression: Chronic lower back pain Qualifiers: Back pain laterality: bilateral Sciatica presence: unspecified whether sciatica present Qualified Code(s): M54.50 - Low back pain, unspecified Condition: Stable Prescriptions: New Medrol (Quentin) 4 mg tablets,dose pack See Rx Instructions .ROUTE .COMPLEX Qty: 21 0RF Rx Instructions: orally per package directions No Action ferrous sulfate [Feosol] 325 mg (65 mg iron) tablet 325 mg PO DAILY gabapentin 300 mg capsule 300 mg PO TID fluticasone propionate 50 mcg/actuation blister with device 1 inh INHALATION BID albuterol sulfate [ProAir HFA] 90 mcg/actuation HFA aerosol inhaler 2 puff INHALATION Q4H PRN albuterol sulfate 2.5 mg /3 mL (0.083 %) solution for nebulization 2.5 mg INHALATION Q6H PRN Spiriva with HandiHaler 18 mcg capsule, w/inhalation device 1 cap INHALATION DAILY pantoprazole [Protonix] 40 mg tablet,delayed release (DR/EC) 40 mg PO DAILY clonazepam [Klonopin] 0.5 mg tablet 0.5 mg PO BID divalproex [Depakote] 500 mg tablet,delayed release (DR/EC) 1,000 mg PO .HS venlafaxine [Effexor XR] 150 mg capsule,extended release 24hr 150 mg PO DAILY nortriptyline 50 mg capsule 50 mg PO .HS jd-[id number]-FA-Ca carb-vit K 18 mg iron-400 mcg-500 mg tablet 1 tab PO DAILY cholecalciferol (vitamin D3) [Vitamin D3] 125 mcg (5,000 unit) tablet 125 mcg PO DAILY aspirin 81 mg tablet,delayed release (DR/EC) 81 mg PO DAILY MEDICAL MARIJUANA USE Not Applicable cyclobenzaprine 10 mg tablet 10 mg PO TID PRN (Reason: muscle spasm) metoprolol tartrate PO BID tocilizumab [Actemra] IV lisinopril 40 mg tablet 40 mg PO DAILY diclofenac sodium 1 % gel 2 g topical QID Qty: 100 2RF Rx Instructions: apply to affected area as needed leflunomide 20 mg tablet 20 mg PO DAILY Qty: 90 0RF prednisone 10 mg tablet See Rx Instructions .ROUTE .COMPLEX Qty: 30 1RF Dose Instruction: TAKE ONE TABLET BY MOUTH ONCE DAILY FOR THE NEXT 3-7 DAYS, THEN DAILY NEEDED FOR JOINT PAIN FLARE Rx Instructions: TAKE ONE TABLET BY MOUTH ONCE DAILY FOR THE NEXT 3-7 DAYS, THEN DAILY NEEDED FOR JOINT PAIN FLARE Discharge Orders: Discharge ED (Routine); Ordered 11/23/22 Ordered By: Randy Eden Referrals: Chapin Julio MD [Primary Care Provider] - Discharge Diet: Regular Discharge Activity: Increase activity as tolerated Patient Instructions: Chronic Back Pain (DC), Opioid Safety Activity Restrictions/Additional Instructions: Follow-up with medical provider as directed. Take medications as prescribed. Return to the ER or your medical provider if condition worsens. Please read and understand discharge instructions. Thank you for choosing [facility] for your healthcare needs today. Please realize this is an emergency room and that we are providing you with a medical screening exam and this may not be complete and all inclusive of all the testing and or work up that you may need to determine your ailment or severity of your illness. It is very important that you follow up as instructed or that you return to the Emergency Department should you have concerns or if your condition changes or worsens in any way. Coding Level of Care Code ED Entry Level Staff Accountant for Amanda Watkins
[2022-11-23 13:24] LABS: Erythrocyte Sedimentation Rate 16 mm/hr (0-15)
[2022-11-23 13:35] VITALS: RESP 16; O2SAT 96
[2022-11-23] MEDS: ondansetron 2 mg/ML SDV 2 mL 4 MG IM (13:35)
[2022-11-23] MEDS: dexamethasone 10 mg/mL INJ IM (13:35)
[2022-11-23] MEDS: morphine 4 mg/mL SDV 1 mL IM (13:35)
[2022-11-23] MEDS: methocarbamol 750 mg Tablet PO (13:36)
[2022-11-23 13:49] LABS: Anion Gap 16.1 (5-19); Blood Urea Nitrogen 15 mg/dL (8-23); C Reactive Protein 15.1 mg/L (0.0-4.9); Calcium 9.7 mg/dL (8.5-10.5); Carbon Dioxide 24 mmol/L (22-29); Chloride 100 mmol/L (98-107); Glucose 96 mg/dL (65-115); Osmolality Calculated 283 mOsm/kg (285-295); Potassium 4.1 mmol/L (3.5-5.1); Sodium 136 mmol/L (136-145)
[2022-11-23 14:58] LABS: Add Urine Microscopic? NO; Charge for UA Resulting for Rev
[2022-11-23 15:07] LABS: Bilirubin Urine Neg (Negative); Blood Urine Neg (Negative); Glucose Urine UA Norm (Normal); Ketones Urine Negative (Negative); Leukocyte Esterase Urine Negative (Negative); Nitrate Urine Negative (Negative); Protein Urine Neg (Negative); Specific Gravity, Urine 1.015 (1.005-1.030); Urine Appearance Clear (CLEAR); Urine Color Yellow (Yellow); Urobilinogen Urine Norm (Negative); pH Urine 6 (5-7)
[2022-11-23] MEDS: HYDROcodone-acetaminophen 7.5-325 mg Tablet 1 TAB PO (15:35)
== END 2022-11-23 15:42 | disposition home or self-care (01) ==
PROVIDERS: Emergency Medicine; Emergency Provider Physician Assistant; PCP Family Medicine
DX: M54.42 Lumbago with sciatica, left side (principal); M54.41 Lumbago with sciatica, right side; Z79.899 Other long term (current) drug therapy; Z79.82 Long term (current) use of aspirin; Z79.52 Long term (current) use of systemic steroids
CPT/HCPCS: 36415; 72100; 80048; 81003; 85025; 85651; 86140; 87040; 96372; 99284; J1100; J2270; J2405

== ENCOUNTER 2022-11-30 08:54 | Oncology outpatient (recurring) (ONCR) | payer MEDICARE, SELFPAY ==
[2022-11-30 09:33] VITALS: BP 131/82; PULSE 69; RESP 17; TEMP 36.7; O2SAT 96
[2022-11-30 09:34] VITALS: BMI 32.1
[2022-11-30] MEDS: sodium chloride 0.9% 250 ML 75 ML IV (10:29)
[2022-11-30] MEDS: diphenhydrAMINE 50 mg/mL SDV 1mL 25 MG IVP (10:34)
[2022-11-30] MEDS: acetaminophen 325 mg Tablet 650 MG PO (10:34)
[2022-11-30] MEDS: methylPREDNISolone sod succ 40 mg SDV IVP (10:35)
[2022-11-30 12:01] VITALS: BP 168/91; PULSE 72; RESP 17; TEMP 36.1; O2SAT 96
== END 2022-12-03 23:59 | disposition home or self-care (01) ==
PROVIDERS: PCP Family Medicine; Visit Provider Internal Medicine Rheumatology
DX: M05.79 Rheumatoid arthritis with rheumatoid factor of multiple sites without organ or systems involvement (principal)
CPT/HCPCS: 96375; 96413; J1200; J2920; J3262; J7050

== ENCOUNTER → 2022-12-18 14:30 | Outpatient (BNVA) | payer MEDICARE, SELFPAY | PROVIDERS: PCP Family Medicine; Visit Provider Internal Medicine Rheumatology | DX: M05.79 Rheumatoid arthritis with rheumatoid factor of multiple sites without organ or systems involvement (principal); Z79.899 Other long term (current) drug therapy; Z71.89 Other specified counseling; Z96.653 Presence of artificial knee joint, bilateral; M79.18 Myalgia, other site; J44.9 Chronic obstructive pulmonary disease, unspecified; I10 Essential (primary) hypertension; F31.9 Bipolar disorder, unspecified; D47.2 Monoclonal gammopathy; M47.9 Spondylosis, unspecified | CPT/HCPCS: 99214 ==

== ENCOUNTER 2022-12-31 09:47 | Oncology outpatient (recurring) (ONCR) | payer MEDICARE, SELFPAY ==
[2022-12-31 10:45] VITALS: BP 141/79; PULSE 76; RESP 16; TEMP 36.8; O2SAT 96
--- NOTE | 2022-12-31 10:57 | PC.NURSE ---
Blood Pressure Pt blood pressure taken on arrival at 1030 was 189/94. Pt stated she was currently out of a blood pressure medication she takes due to cost, but is still taking her metoprolol. Pt was educated to contact primary care provider concerning this. Blood pressure retaken at 1040 was 141/79.
[2022-12-31] MEDS: acetaminophen 325 mg Tablet 650 MG PO (11:12)
[2022-12-31] MEDS: sodium chloride 0.9% 250 ML 75 ML IV (11:12)
[2022-12-31] MEDS: diphenhydrAMINE 50 mg/mL SDV 1mL 25 MG IVP (11:13)
[2022-12-31] MEDS: methylPREDNISolone sod succ 40 mg SDV IVP (11:14)
[2022-12-31] MEDS: TOCILIZUMAB IV (11:51)
[2022-12-31] MEDS: SODIUM CHLORIDE 0.9% IV (11:51)
[2022-12-31 13:22] VITALS: BP 201/100; PULSE 88; RESP 16; TEMP 35.8; O2SAT 95
== END 2023-01-03 23:59 | disposition home or self-care (01) ==
LOC: ONCMED 09:48
PROVIDERS: PCP Family Medicine; Visit Provider Internal Medicine Rheumatology
DX: M05.79 Rheumatoid arthritis with rheumatoid factor of multiple sites without organ or systems involvement (principal)
CPT/HCPCS: 96413; J1200; J2920; J3262; J7050

== ENCOUNTER 2023-01-28 08:31 | Oncology outpatient (recurring) (ONCR) | payer MEDICARE, SELFPAY ==
[2023-01-28 09:15] VITALS: BP 138/98; PULSE 71; RESP 17; TEMP 36.9; O2SAT 96
[2023-01-28 09:19] LABS: Basophils # 0.1 10^3/uL (0.0-0.1); Basophils % 1.4 %; Eosinophils # 0.1 10^3/uL (0.0-0.8); Eosinophils % 2.5 %; Lymphocytes # 2.4 10^3/uL (0.8-4.8); Mean Corpuscular Volume 91.1 fl (85-98); Mean Platelet Volume 12.9 fL (7.4-10.4); Monocytes # 0.6 10^3/uL (0.2-0.9); Monocytes % 10.7 %; Neutrophils # 1.98 10^3/uL (1.8-7.7); Neutrophils % 38.4 %; Nucleated Red Blood Cells % 0 %; Platelet Count 154 10^3/cmm (157-399); Red Blood Count 5.16 10^6/uL (3.85-5.65); Red Cell Distribution Width 13.4 % (12.1-15.1); White Blood Count 5.15 10^3/uL (3.29-11.43)
[2023-01-28] MEDS: sodium chloride 0.9% 250 ML 75 ML IV (09:27)
[2023-01-28] MEDS: acetaminophen 325 mg Tablet 650 MG PO (09:27)
[2023-01-28 09:30] LABS: Erythrocyte Sedimentation Rate < 1 mm/hr (0-15)
[2023-01-28] MEDS: diphenhydrAMINE 50 mg/mL SDV 1mL 25 MG IVP (09:30)
[2023-01-28] MEDS: methylPREDNISolone sod succ 40 mg SDV IVP (09:35)
[2023-01-28 09:44] LABS: Alanine Aminotransferase 20 U/L (0-33); Alkaline Phosphatase 83 U/L (35-105); Aspartate Amino Transferase 23 U/L (0-32); Globulin 2.7 g/dL (1.3-4.6); Total Bilirubin 0.5 mg/dL (0.15-1.2); Total Protein 7.7 g/dL (6.6-8.7)
[2023-01-28] MEDS: tocilizumab 400 MG, tocilizumab 200 MG, tocilizumab 80 MG in sodium chloride 0.9% (100 ... 134 MG IV (09:52)
[2023-01-28 11:00] VITALS: BP 163/78; PULSE 66; RESP 16; TEMP 36.3; O2SAT 94
== END 2023-02-02 23:59 | disposition home or self-care (01) ==
PROVIDERS: PCP Family Medicine; Visit Provider Internal Medicine Rheumatology
DX: M05.79 Rheumatoid arthritis with rheumatoid factor of multiple sites without organ or systems involvement (principal); M47.816 Spondylosis without myelopathy or radiculopathy, lumbar region; Z53.9 Procedure and treatment not carried out, unspecified reason
CPT/HCPCS: 80076; 82565; 85025; 85651; 96375; 96413; J1200; J2920; J3262; J7050

== ENCOUNTER 2023-05-02 09:03 | Oncology outpatient (recurring) (ONCR) | payer MEDICARE, SELFPAY ==
[2023-05-02 10:27] LABS: Basophils # 0.1 10^3/uL (0.0-0.1); Basophils % 0.9 %; Eosinophils # 0.1 10^3/uL (0.0-0.8); Hematocrit 39.3 % (36-47); Lymphocytes # 1.9 10^3/uL (0.8-4.8); Lymphocytes % 33.9 %; Mean Corpuscular HGB Conc 33.3 g/dL (30-55); Mean Corpuscular Hemoglobin 30.2 pg (27-33); Mean Corpuscular Volume 90.6 fl (85-98); Mean Platelet Volume 11.4 fL (7.4-10.4); Monocytes # 0.4 10^3/uL (0.2-0.9); Monocytes % 7.5 %; Neutrophils # 3.06 10^3/uL (1.8-7.7); Neutrophils % 55.7 %; Nucleated Red Blood Cells % 0 %; Platelet Count 195 10^3/cmm (157-399); Red Blood Count 4.34 10^6/uL (3.85-5.65); Red Cell Distribution Width 12.8 % (12.1-15.1); White Blood Count 5.49 10^3/uL (3.29-11.43)
[2023-05-02 10:45] LABS: Alanine Aminotransferase 13 U/L (0-33); Alkaline Phosphatase 81 U/L (35-105); Aspartate Amino Transferase 16 U/L (0-32); Globulin 3.2 g/dL (1.3-4.6); Glomerular Filtration Rate 72.2 mL/min (90-130); Total Bilirubin 0.3 mg/dL (0.15-1.2); Total Protein 7.2 g/dL (6.6-8.7)
[2023-05-02] MEDS: sodium chloride 0.9% 250 ML 75 ML IV (11:10)
[2023-05-02] MEDS: diphenhydrAMINE 50 mg/mL SDV 1mL 25 MG IVP (11:13)
[2023-05-02] MEDS: acetaminophen 325 mg Tablet 650 MG PO (11:14)
[2023-05-02] MEDS: methylPREDNISolone sod succ 40 mg/mL INJ IVP (11:18)
[2023-05-02] MEDS: tocilizumab 400 MG, tocilizumab 200 MG, tocilizumab 70 MG in sodium chloride 0.9% (100 ... 133.5 MG IV (11:34)
[2023-05-02 12:45] VITALS: BP 163/93; PULSE 67; RESP 18; TEMP 36.6; O2SAT 95
== END 2023-05-05 23:59 | disposition home or self-care (01) ==
PROVIDERS: Internal Medicine Rheumatology; PCP Family Medicine; Visit Provider Family Medicine
DX: M05.79 Rheumatoid arthritis with rheumatoid factor of multiple sites without organ or systems involvement (principal)
CPT/HCPCS: 80076; 82565; 85025; 86140; 96365; 96375; J1200; J2920; J3262; J7050

== ENCOUNTER 2023-05-23 12:27 | Emergency (ER) | payer MEDICARE, SELFPAY ==
[2023-05-23 12:31] VITALS: BP 168/111; PULSE 91; RESP 24; TEMP 36.7; O2SAT 98; BMI 29.3
--- NOTE | 2023-05-23 13:18 | W.ED.ANXIETY ---
HPI - Anxiety General: Chief Complaint: Anxiety Stated Complaint: anxiety Time Seen by Provider: 05/23/23 13:17 Source: patient and family Limitations: no limitations History of Present Illness: Patient comes to the emergency department because she is acutely anxious. She has a history of anxiety and normally takes 0.25 a Klonopin twice daily for that condition. She apparently was started on meloxicam and anticipation of surgery later this month and base of her biologic and thinks that the meloxicam may have tripped her and her anxiety attack. She is quite anxious despite taking her usual medication today. MD complaint: anxiety Place: home Provoking factors: medication change Associated symptoms: Deny chest pain, chills, fever(s), headache(s), nausea, palpitations or vomiting Review of Systems Const: Denies: fever(s) or chills ENMT: Denies: throat pain or odynophagia Card: Denies: chest pain, palpitations or irregular heart rhythm Resp: Denies: dyspnea or productive cough GI: Denies: nausea, vomiting or diarrhea Musc: Reports: back pain (Chronic); Denies: neck pain Skin/Breast: Denies: rash Neuro: Denies: headache(s), numbness in extremities, weakness in extremities, dizziness, vertigo or seizure-like activity Psych: Reports: anxiety and panic attacks; Denies: visual hallucinations, auditory hallucinations, suicidal ideation or homicidal ideation [facility] ED PFSH: Medical History High risk medication use Immunization counseling Spondylolisthesis, lumbar region Intervertebral disc disorder with radiculopathy of lumbar region Intervertebral disc disorder with radiculopathy of lumbosacral region High risk medication use Chronic migraine without aura, intractable, with status migrainosus Rheumatoid arthritis, seropositive, multiple sites Surgical History History of decompression of ulnar nerve 07/29/2008 Dr. Riley Dos Santos: Right History of hysterectomy (~1999) non cancerous, ovaries remain History of arthroplasty of right knee (~10/2017) total, Dr. Martin Family History Mother Lung cancer age 58 Father Lupus anticoagulant disorder CAD (coronary artery disease) age 70 Grandmother CAD (coronary artery disease) Grandfather CAD (coronary artery disease) Social History Smoking and tobacco/nicotine status: never used tobacco/nicotine Alcohol intake: never Substance/Drug Use: current Caregiver/support person: Yes Household members: spouse Marital status: Current occupational status: disabled Physical Exam Narrative: EXAM NARRATIVE: On initial intake the patient was quite tearful and anxious and quite pressured in speech. She did provide adequate logical answers to questions. She did make good eye contact. Const: COMMON NORMALS: average body habitus and patient oriented x3 GENERAL APPEARANCE: in distress and anxious ORIENTATION/CONSCIOUSNESS: Yes awake, Yes oriented to person and Yes oriented to place HENMT: COMMON NORMALS: normocephalic, Normal nasal mucous membranes and turbinates present and moist oral mucous membranes HEAD & SCALP: normocephalic NOSE: Normal nasal mucous membranes and turbinates present Eye: COMMON NORMALS: Equal, round and reactive pupils present, EOMs intact bilaterally and conjunctivae normal CONJUNCTIVA: Yes conjunctivae normal PUPIL: Yes Equal, round and reactive pupils present Neck/C-Spine: COMMON NORMALS: full ROM and no lymphadenopathy Resp: COMMON NORMALS: normal respiratory effort, No retractions, No use of accessory muscles and clear to auscultation bilaterally EFFORT & INSPECTION: Yes able to speak in complete sentences AUSCULTATION: clear to auscultation bilaterally Cardio: COMMON NORMALS: regular rate, regular rhythm and Peripheral pulses 2+ throughout RATE: regular rate RHYTHM: regular rhythm PERIPHERAL PULSES: Peripheral pulses 2+ throughout GI: COMMON NORMALS: Normal to inspection, nondistended, normoactive bowel sounds present Back/Pelvis: COMMON NORMALS: thoraco-lumbar ROM normal Extremity: COMMON NORMALS: normal to inspection and full ROM Neuro: COMMON NORMALS: patient oriented x3, moves all extremities and no focal motor deficits SENSORIUM/ORIENTATION: Yes oriented to person and Yes oriented to place CRANIAL NERVES: Yes CN normal except as noted Psych: COMMON NORMALS: cooperative, denies hallucinations, denies homicidal ideation and denies suicidal ideation ACTIVITY/MOTOR BEHAVIOR: Yes appropriate eye contact SPEECH: Yes rapid and Yes Pressured speech present MOOD & AFFECT: Yes elevated mood, Yes anxious and Yes tearful THOUGHT PROCESS: disorganized THOUGHT CONTENT: Yes Normal thought content present MEMORY/COGNITION: Yes memory grossly intact INSIGHT: Fair insight present (Psych) JUDGEMENT: Fair judgement present (Psych) Skin: COMMON NORMALS: no rashes or lesions noted GENERAL SKIN EXAM: no rashes or lesions noted Course Reevaluation(s): Reevaluation #1: After 2 mg of lorazepam the patient is very calm and cooperative and desires to be discharged. Repeat evaluation reveals her to have intact decision-making capacity and no thoughts of harm to self or others. We did discuss holding off on her meloxicam as if she associates her symptoms with that medication. She should discuss additional medications with her prescribing physician. Both she and her accompanying spouse voiced understanding of the plan of care. Time: 14:29 Vital Signs: Vital signs: Vital Signs Temperature 98.0 F 05/23/23 12:31 Pulse Rate 91 05/23/23 12:31 Respiratory Rate 24 H 05/23/23 12:31 Blood Pressure 168/111 05/23/23 12:31 Pulse Oximetry 98 05/23/23 12:31 Oxygen Delivery Me thod Room Air 05/23/23 12:31 MDM - Anxiety Medical Decision Making Patient with a known history of anxiety disorder and panic attacks of normally well-controlled on her Klonopin 0.25 mg twice daily presented to the emergency department with her spouse because of what she describes as a panic attack today. She states that she associates it with stopping her biologic and starting the meloxicam for symptom control while she awaits her surgery. She voiced no thoughts of harm to self or others. She denied any extraneous drug use etc. She normally takes Klonopin to control her symptoms but it was not successful today. After evaluation the patient was given 2 mg of lorazepam and reevaluated. She was calm collected and intact with her thought process and decision making capacity. She is thought to be suitable to be discharged with spouse and she was amenable to that plan of care with return precautions. No evidence at this time of risk of self harm or harm to others. echo those sediments as well. No radiology studies performed this visit Discharge Plan Discharge Patient Disposition: Home Clinical Impression: Acute anxiety Condition: Stable Prescriptions: No Action ferrous sulfate [Feosol] 325 mg (65 mg iron) tablet 325 mg PO DAILY gabapentin 300 mg capsule 300 mg PO TID albuterol sulfate [ProAir HFA] 90 mcg/actuation HFA aerosol inhaler 2 puff INHALATION Q4H PRN (Reason: Shortness Of Breath Or Wheezing) pantoprazole [Protonix] 40 mg tablet,delayed release (DR/EC) 40 mg PO DAILY clonazepam [Klonopin] 0.5 mg tablet 0.5 mg PO BID venlafaxine [Effexor XR] 150 mg capsule,extended release 24hr 150 mg PO DAILY nortriptyline 50 mg capsule 50 mg PO QPM bw-ob-tdlt-FA-Ca carb-vit K 18 mg iron-400 mcg-500 mg tablet 1 tab PO DAILY cholecalciferol (vitamin D3) [Vitamin D3] 125 mcg (5,000 unit) tablet 125 mcg PO DAILY cyclobenzaprine 10 mg tablet 10 mg PO TID PRN (Reason: muscle spasm) tocilizumab [Actemra] See Rx Instructions .ROUTE .COMPLEX Rx Instructions: intravenously as directed Botox 100 unit recon soln 155 unit IM ONCE Qty: 2 0RF leflunomide 20 mg tablet 20 mg PO DAILY diclofenac sodium 1 % gel 2 g topical QID PRN (Reason: Rash) metoprolol tartrate 25 mg Tablet 25 mg PO BID Trelegy Ellipta 100-62.5-25 mcg Blister With Device 1 inh INHALATION DAILY prednisone 10 mg tablet 10 mg PO DAILY PRN (Reason: joint pain) Rx Instructions: TAKE ONE TABLET BY MOUTH ONCE DAILY FOR THE NEXT 3-7 DAYS, THEN DAILY NEEDED FOR JOINT PAIN FLARE tizanidine 4 mg tablet 4 mg PO TID clopidogrel 75 mg tablet 75 mg PO DAILY hydrocodone-acetaminophen 7.5-325 mg tablet 1 tab PO BID Discharge Orders: Discharge ED (Routine); Ordered 05/23/23 Ordered By: Braydon Sandoval Referrals: Chapin Julio MD [Primary Care Provider] - Discharge Diet: Usual diet Discharge Activity: Resume usual activity Patient Instructions: Opioid Safety, Pain Management Activity Restrictions/Additional Instructions: Given that the meloxicam may have been associated with how you fell today we recommend that you hold off on taking the medication until you discuss it with your prescribing physician. Continue all your other usual medication including her Klonopin. If you have any worsening or concerning symptoms you are welcome to return to the emergency department for reevaluation. Coding Level of Care Code ED Process Developer for Amanda Watkins
[2023-05-23] MEDS: LORazepam 2 mg Tablet PO (13:20)
--- NOTE | 2023-05-23 13:22 | PC.NURSE ---
WHEN THIS NURSE ENTERED THE ROOM, PATIENT WAS FOUND SITTING IN THE CORNER WITH HER KNEES UP TO HER CHEST WITH HER SWEATSHIRT OVER HER KNEES. WHEN THIS NURSE ASKED THE PATIENT IF SHE WOULD GET BACK IN THE BED, PATIENT STATED I FEEL SAFER HERE. NOBODY CAN GET BEHIND ME AND I AM MORE CALM HERE. THIS NURSE ASKED THE PATIENT IF SHE WAS HEARING ANY VOICES AND PATIENT DENIED ANY VOICES. PATIENT REPORTS FEELING PARANOID AND STATES I JUST WANT TO BE LEFT ALONE. I NEED TO GET OUT OF HERE. PATIENT REPORTS THAT PATIENT HAS EPISODES LIKE THIS WHERE SHE WANTS TO BE LEFT ALONE.
--- NOTE | 2023-05-23 14:08 | PC.NURSE ---
UPON REASSESSMENT OF PATIENT AFTER PO ATIVAN, PATIENT IS BACK IN BED. PATIENT BREATHING IS CONTROLLED. PATIENT STATES THAT SHE FEELS BETTER AND FEELS CALMER.
== END 2023-05-23 14:31 | disposition home or self-care (01) ==
PROVIDERS: Emergency Provider Emergency Medicine; PCP Family Medicine
DX: F41.9 Anxiety disorder, unspecified (principal); Z79.02 Long term (current) use of antithrombotics/antiplatelets
CPT/HCPCS: 99283

== ENCOUNTER 2023-10-14 09:17 | Oncology outpatient (recurring) (ONCR) | payer MEDICARE, SELFPAY ==
--- NOTE | 2023-09-09 10:17 | PC.NURSE ---
Pt has not shown for infusion treatments since May 2022. Called pts cell number listed in chart, number is disconnected. Called home phone, no answer, vm is full.
[2023-10-14 10:04] LABS: Basophils # 0.1 10^3/uL (0.0-0.1); Basophils % 0.9 %; Eosinophils # 0.2 10^3/uL (0.0-0.8); Eosinophils % 2.9 %; Hematocrit 39.8 % (36-47); Lymphocytes # 2.1 10^3/uL (0.8-4.8); Lymphocytes % 30.3 %; Mean Corpuscular HGB Conc 32.9 g/dL (30-55); Mean Corpuscular Hemoglobin 29.8 pg (27-33); Mean Corpuscular Volume 90.5 fl (85-98); Mean Platelet Volume 11.4 fL (7.4-10.4); Monocytes # 0.6 10^3/uL (0.2-0.9); Monocytes % 8.5 %; Neutrophils # 3.96 10^3/uL (1.8-7.7); Neutrophils % 57.1 %; Nucleated Red Blood Cells % 0 %; Platelet Count 232 10^3/cmm (157-399); Red Cell Distribution Width 14.4 % (12.1-15.1); White Blood Count 6.93 10^3/uL (3.29-11.43)
[2023-10-14] MEDS: acetaminophen 325 mg Tablet 650 MG PO (10:16)
[2023-10-14] MEDS: sodium chloride 0.9% 250 ML 75 ML IV (10:17)
[2023-10-14] MEDS: diphenhydrAMINE 50 mg/mL SDV 1mL 25 MG IVP (10:20)
[2023-10-14 10:24] LABS: Erythrocyte Sedimentation Rate 36 mm/hr (0-15)
[2023-10-14] MEDS: methylPREDNISolone sod succ 40 mg/mL INJ IVP (10:24)
[2023-10-14 10:31] VITALS: BP 127/75; PULSE 54; RESP 16; TEMP 36.3; O2SAT 95
[2023-10-14 10:33] LABS: Alanine Aminotransferase 17 U/L (0-33); Alkaline Phosphatase 93 U/L (35-105); Aspartate Amino Transferase 22 U/L (0-32); Creatinine Clr Calc Pharmacy 76.5288; Globulin 3.2 g/dL (1.3-4.6); Total Bilirubin 0.2 mg/dL (0.15-1.2); Total Protein 7.2 g/dL (6.6-8.7)
[2023-10-14 11:58] VITALS: BP 135/75; PULSE 62; RESP 18; TEMP 36.6; O2SAT 94
== END 2023-11-03 23:59 | disposition home or self-care (01) ==
PROVIDERS: Internal Medicine Rheumatology; PCP Family Medicine; Visit Provider Internal Medicine Medical Oncology
DX: M05.79 Rheumatoid arthritis with rheumatoid factor of multiple sites without organ or systems involvement (principal)
CPT/HCPCS: 80076; 82565; 85025; 85651; 96375; 96413; J1200; J2919; J3262; J7050

== ENCOUNTER 2023-11-13 12:19 | Oncology outpatient (recurring) (ONCR) | payer MEDICARE, SELFPAY ==
[2023-11-13 12:38] VITALS: BP 104/69; PULSE 58; RESP 18; TEMP 36.6; O2SAT 96
[2023-11-13] MEDS: acetaminophen 325 mg Tablet 650 MG PO (13:10)
[2023-11-13] MEDS: sodium chloride 0.9% 250 ML 75 ML IV (13:11)
[2023-11-13] MEDS: methylPREDNISolone sod succ 40 mg/mL INJ IVP (13:14)
[2023-11-13] MEDS: diphenhydrAMINE 50 mg/mL SDV 1mL 25 MG IVP (13:14)
[2023-11-13] MEDS: TOCILIZUMAB IV (14:20)
[2023-11-13] MEDS: SODIUM CHLORIDE 0.9% IV (14:20)
[2023-11-13 15:30] VITALS: BP 142/82; PULSE 69; RESP 17; TEMP 37; O2SAT 95
== END 2023-12-04 23:59 | disposition home or self-care (01) ==
PROVIDERS: PCP Family Medicine; Visit Provider Internal Medicine Medical Oncology
DX: M05.79 Rheumatoid arthritis with rheumatoid factor of multiple sites without organ or systems involvement (principal)
CPT/HCPCS: 96375; 96413; J1200; J2919; J3262; J7050

== ENCOUNTER 2023-12-25 09:02 | Oncology outpatient (recurring) (ONCR) | payer MEDICARE, SELFPAY ==
[2023-12-25 09:14] VITALS: BP 158/83; PULSE 57; RESP 16; TEMP 36.6; O2SAT 98
[2023-12-25] MEDS: acetaminophen 325 mg Tablet 650 MG PO (09:38)
[2023-12-25] MEDS: sodium chloride 0.9% 250 ML 75 ML IV (09:39)
[2023-12-25] MEDS: methylPREDNISolone sod succ 40 mg/mL INJ IVP (09:41)
[2023-12-25] MEDS: diphenhydrAMINE 50 mg/mL SDV 1mL 25 MG IVP (09:46)
[2023-12-25] MEDS: tocilizumab 400 MG, tocilizumab 200 MG, tocilizumab 60 MG in sodium chloride 0.9% (100 ... 133 MG IV (10:20)
[2023-12-25 11:45] VITALS: BP 183/86; PULSE 69; RESP 17; TEMP 36.3; O2SAT 97
== END 2024-01-04 23:55 | disposition home or self-care (01) ==
LOC: ONCMED 09:04
PROVIDERS: PCP Family Medicine; Visit Provider Internal Medicine Medical Oncology
DX: Z79.899 Other long term (current) drug therapy (principal); M05.9 Rheumatoid arthritis with rheumatoid factor, unspecified
CPT/HCPCS: 96375; 96413; J1200; J2919; J3262; J7050

== ENCOUNTER 2024-01-22 10:08 | Oncology outpatient (recurring) (ONCR) | payer OTHER, SELFPAY ==
[2024-01-22 10:33] VITALS: BP 113/74; PULSE 74; RESP 16; TEMP 36.3; O2SAT 96
[2024-01-22] MEDS: sodium chloride 0.9% 250 ML 75 ML IV (11:23)
[2024-01-22] MEDS: diphenhydrAMINE 50 mg/mL SDV 1mL 25 MG IVP (11:23)
[2024-01-22] MEDS: acetaminophen 325 mg Tablet 650 MG PO (11:23)
[2024-01-22] MEDS: methylPREDNISolone sod succ 40 mg/mL INJ IVP (11:27)
[2024-01-22] MEDS: tocilizumab 400 MG, tocilizumab 200 MG, tocilizumab 60 MG in sodium chloride 0.9% (100 ... 133 MG IV (11:50)
[2024-01-22 12:58] VITALS: BP 178/99; PULSE 87; RESP 18; TEMP 36.6; O2SAT 96
== END 2024-02-03 23:59 | disposition home or self-care (01) ==
PROVIDERS: PCP Family Medicine; Visit Provider Internal Medicine Rheumatology
DX: Z79.899 Other long term (current) drug therapy (principal); M05.9 Rheumatoid arthritis with rheumatoid factor, unspecified
CPT/HCPCS: 96375; 96413; J1200; J2919; J3262; J7050

== ENCOUNTER 2024-03-23 11:00 | Outpatient (CLI) | payer OTHER, SELFPAY ==
--- NOTE | 2024-03-23 11:07 | MR_ITS ---
WS: [id number] MRI CERVICAL SPINE NONCONTRAST HISTORY: NECK PAIN COMPARISON: 05/28/2013 Technique: Multiplanar, multisequence noncontrast imaging of the cervical spine. Mild straightening of the normal cervical lordosis. Disc spaces are narrowed and desiccated. Chronic endplate changes and osteophytes. Most significant degenerative changes are at C5-6 and C6-7. Posterior fossa is negative. Craniocervical junction, C1 and C2 relationship, odontoid process and soft tissues are normal. C2-C3: Small central disc protrusion. Mild facet arthritis. C3-C4: Asymmetric LEFT foraminal larger osteophyte. LEFT foraminal osteophyte is causing severe LEFT foraminal stenosis. C4-C5: Mild annular disc bulging. There is a large disc osteophyte and marked facet joint arthropathy on the LEFT. Facet edema. Complete pleat effacement of CSF. Severe LEFT foraminal stenosis. Marrow e margot in the C5 superior articular facet. C5-C6: Marked osteophytic ridging. Moderate RIGHT paracentral disc protrusion effacing and deforming the central canal. There is significant narrowing of the central canal. No definite myelomalacia. Sev ere central with bilateral foraminal stenosis due to disc osteophyte disease, RIGHT greater than LEFT . C6-C7: Diffuse osteophytic ridging. Small central disc protrusion. Bilateral foraminal disc osteophyt es resulting in severe bilateral foraminal stenosis with facet arthritis. Small amount of LEFT facet edema. C7-T1: Mild LEFT foraminal stenosis due to osteophyte disease. Paraspinal soft tissue are normal. MR/MR cervical spin wo con* [id number] IMPRESSION: 1. Significant progression of stenosis since 2013. 2. C3-4: Severe LEFT foraminal stenosis due to disc osteophyte. 3. C4-5: Severe LEFT foraminal stenosis. Complete effacement of CSF and forami nal fat. Edema within the superior LEFT C5 articular facet. Large disc osteophy te and facet joint arthropathy on the LEFT. 4. C5-6: Moderate RIGHT paracentral disc protrusion effacing and deforming the central canal. Severe central with bilateral foraminal stenosis, RIGHT greater than LEFT. 5. C6-7: Severe bilateral foraminal stenosis with facet arthritis. Edema in th e LEFT facets. 6. C7-T1: Mild LEFT foraminal stenosis due to osteophyte disease.
== END 2024-03-23 11:01 | disposition home or self-care (01) ==
PROVIDERS: PCP Family Medicine; Visit Provider Family Medicine
DX: M54.12 Radiculopathy, cervical region (principal); M99.61 Osseous and subluxation stenosis of intervertebral foramina of cervical region; M47.898 Other spondylosis, sacral and sacrococcygeal region; M50.20 Other cervical disc displacement, unspecified cervical region; M25.78 Osteophyte, vertebrae
CPT/HCPCS: 72141

== ENCOUNTER 2024-07-13 09:57 | Outpatient (CLI) | payer MEDICARE, SELFPAY ==
--- NOTE | 2024-07-13 | MM_ITS ---
WS: [id number] BILATERAL SCREENING DIGITAL TOMOSYNTHESIS MAMMOGRAM WITH CAD HISTORY: ANNUAL SCREENING COMPARISON: 03/13/2021, 10/16/2013 Bilateral CC and MLO views with tomosynthesis and synthetic mammography submitted. Computer aided detection analyzed. Breast composition: There are scattered areas of fibroglandular density. No suspicious masses, microcalcifications or architectural distortion. Benign scattered calcifications in each breast. MM/MM scr BI tomosynthesis [id number] IMPRESSION: BI-RADS: 2 - Benign. FOLLOW UP: 1 Year Follow-up
== END 2024-07-13 09:58 | disposition home or self-care (01) ==
LOC: RAD 09:58
PROVIDERS: PCP Family Medicine; Visit Provider Family Medicine
DX: Z12.31 Encounter for screening mammogram for malignant neoplasm of breast (principal); R92.323 Mammographic fibroglandular density, bilateral breasts; R92.1 Mammographic calcification found on diagnostic imaging of breast
CPT/HCPCS: 77063; 77067

== ENCOUNTER → 2024-07-14 13:43 | Outpatient (BNVA) | payer MEDICARE, SELFPAY | PROVIDERS: PCP Family Medicine; Visit Provider Specialist | DX: R20.0 Anesthesia of skin (principal); R29.898 Other symptoms and signs involving the musculoskeletal system; M25.511 Pain in right shoulder | CPT/HCPCS: 95911 ==

== ENCOUNTER → 2024-08-04 09:22 | Outpatient (BNVA) | payer MEDICARE, SELFPAY | PROVIDERS: PCP Family Medicine; Referring Provider Family Medicine; Visit Provider Anesthesiology Pain Medicine | DX: M54.2 Cervicalgia (principal); M48.02 Spinal stenosis, cervical region; G56.03 Carpal tunnel syndrome, bilateral upper limbs; M51.16 Intervertebral disc disorders with radiculopathy, lumbar region | CPT/HCPCS: 99204 ==

== ENCOUNTER → 2024-08-13 11:50 | Outpatient (BNVA) | payer MEDICARE, SELFPAY | PROVIDERS: PCP Family Medicine; Visit Provider Internal Medicine Rheumatology | DX: M05.79 Rheumatoid arthritis with rheumatoid factor of multiple sites without organ or systems involvement (principal); Z79.899 Other long term (current) drug therapy; Z71.89 Other specified counseling | CPT/HCPCS: 36415; 80076; 82565; 85025; 85651; 86140; 86480; 99214 ==

== ENCOUNTER → 2024-08-27 09:54 | Outpatient (BNVA) | payer MEDICARE, SELFPAY | PROVIDERS: PCP Family Medicine; Visit Provider Orthopaedic Surgery | DX: M79.641 Pain in right hand (principal); M79.642 Pain in left hand; G56.03 Carpal tunnel syndrome, bilateral upper limbs; M65.331 Trigger finger, right middle finger; M65.332 Trigger finger, left middle finger; M65.321 Trigger finger, right index finger | CPT/HCPCS: 73130; 99204 ==

== ENCOUNTER 2024-09-08 11:46 | Day surgery (SDC) | payer MEDICARE, SELFPAY ==
[2024-09-08] VITALS (13 sets, daily range): BP systolic 118–153; BP diastolic 69–96; PULSE 53–82; RESP 12–23; TEMP 36.1–36.6; O2SAT 93–99; BMI 27.2
--- NOTE | 2024-09-08 12:24 | ANES.PREANE2 ---
Pre-Anesthetic Assessment Height/Weight: Height 5 ft 6 in Weight 169 lb Temp Pulse Resp BP Pulse Ox O2 Del Method 97 F L 53 L 16 153/94 97 Room Air 09/08/24 12:03 09/08/24 12:03 09/08/24 12:03 09/08/24 12:03 09/08/24 12:03 09/08/24 12:11 Preop Diagnosis: Carpal tunnel syndrome Operation Date: 09/08/24 13:30 Proposed Procedures p RIGHT Carpal Tunnel Release(Right) - Srinivasa Rojas MD s RIGHT INDEX and LONG Trigger Finger Release(Right) - Srinivasa Rojas MD Was Beta Jose J taken within 24 hours: N/A Was Clonidine taken within 24 hours: N/A Last intake: Intake Last Liquid Date 09/07/24 Last Liquid Time 23:30 Last Solid Date 09/07/24 Last Solid Time 18:00 Social No alcohol and No tobacco Exam alert, oriented x 3, clear to auscultation bilaterally and regular rate & rhythm Airway Submandibular: within normal limits Cervical ROM: within normal limits Mallampati: Class III Dentition: false Anesthetic Plan ASA status: 3 Anesthesia: General Other: No prior issues with anesthesia NPO since yesterday evening History of hypertension on metoprolol GERD on Protonix Patient has MGUS and rheumatoid arthritis. On upadacitinib Labs reviewed from 08/13/2024 acceptable for procedure Prior echo in 2021 showing EF of 65% Plan for general anesthesia with LMA Medications/Allergies Home Medications ?Medication ?Instructions ?Recorded ?Confirmed ?Last Taken ?Type albuterol sulfate 90 mcg/actuation 2 puff inhalation Q4H PRN 06/17/19 09/07/24 09/07/24 History aerosol inhaler (ProAir HFA) Shortness Of Breath Or Wheezing cholecalciferol (vitamin D3) 125 125 mcg PO DAILY 06/17/19 09/07/24 09/07/24 History mcg (5,000 unit) tablet (Vitamin D3) clonazepam 0.5 mg tablet (Klonopin) 0.5 mg PO BID 06/17/19 09/07/24 09/08/24 History pxufztin-aif-xzif-FA-Ca carb-vit K 1 tab PO DAILY 06/17/19 09/07/24 05/23/23 History 18 mg iron-400 mcg-500 mg tablet nortriptyline 50 mg capsule 50 mg PO QPM 06/17/19 09/07/24 09/06/24 History pantoprazole 40 mg tablet,delayed 40 mg PO DAILY 06/17/19 09/07/24 09/08/24 History release (Protonix) venlafaxine 150 mg 150 mg PO DAILY 06/17/19 09/07/24 09/07/24 History capsule,extended release 24 hr (Effexor XR) ferrous sulfate 325 mg (65 mg 325 mg PO DAILY 10/05/19 09/07/24 05/23/23 History iron) tablet (Feosol) gabapentin 300 mg capsule 300 mg PO TID 10/18/20 09/07/24 09/07/24 History clopidogrel 75 mg tablet 75 mg PO DAILY 05/23/23 09/07/24 09/03/24 History fluticasone fur. 100 mcg-umeclid 1 inh inhalation DAILY 05/23/23 09/07/24 Unknown History 62.5 mcg-vilant 25 mcg inhalat.powder (Trelegy Ellipta) metoprolol tartrate 25 mg tablet 25 mg PO BID 05/23/23 09/07/24 09/08/24 History diclofenac sodium 75 mg 75 mg PO Q12H PRN moderate to 08/13/24 09/07/24 09/05/24 Rx tablet,delayed release severe pain as needed #60 tabs upadacitinib 15 mg tablet,extended 15 mg PO DAILY #30 tabs 08/13/24 09/07/24 Unknown Rx release 24 hr (Rinvoq) leflunomide 20 mg tablet 20 mg PO DAILY #30 tabs 08/31/24 09/07/24 09/07/24 Rx Allergies Allergy/AdvReac Type Severity Reaction Status Date / Time cephalexin (From Keflex) Allergy Unknown Verified 08/27/24 10:03 Cephalosporins Allergy blisters Verified 08/27/24 10:03 in mouth and throat oxycodone (From Percodan) Allergy rash Verified 08/27/24 10:03 [facility] Anesthesia Medical History High risk medication use Immunization counseling Spondylolisthesis, lumbar region Intervertebral disc disorder with radiculopathy of lumbar region Intervertebral disc disorder with radiculopathy of lumbosacral region High risk medication use Chronic migraine without aura, intractable, with status migrainosus Rheumatoid arthritis, seropositive, multiple sites Surgical History History of decompression of ulnar nerve 07/29/2008 Dr. Riley Dos Santos: Right History of hysterectomy (~1999) non cancerous, ovaries remain History of arthroplasty of right knee (~10/2017) total, Dr. Martin Family History Mother Lung cancer age 58 Father Lupus anticoagulant disorder CAD (coronary artery disease) age 70 Grandmother CAD (coronary artery disease) Grandfather CAD (coronary artery disease) Social History Smoking and tobacco/nicotine status: current every day tobacco/nicotine user cigarettes Alcohol intake: never Substance/Drug Use: current Caregiver/support person: Yes Household members: spouse Marital status: Current occupational status: disabled Data Anesthesia Cardiac Studies: Echocardiogram 12/01/21 Holter Monitor 09/12/21
--- NOTE | 2024-09-08 13:17 | W.PM.OPSUD ---
Surgery/Procedure H&P Update DATE OF PROCEDURE: September 08, 2024 DATE H&P PERFORMED: 08/27/24 H&P UPDATE INFORMATION: I have reviewed H&P completed within last 30 days, I have examined patient prior to procedure, No changes to prior documentation and Risks and benefits of the procedure reviewed PREOP DIAGNOSIS: Carpal tunnel syndrome PLANNED PROCEDURE: Operation Date: 09/08/24 13:30 Proposed Procedures p RIGHT Carpal Tunnel Release(Right) - Srinivasa Rojas MD s RIGHT INDEX and LONG Trigger Finger Release(Right) - Srinivasa Rojas MD
[2024-09-08] MEDS: sodium chloride 0.9% 1,000 ML 30 ML IV (13:22)
[2024-09-08] MEDS: clindamycin 600 MG/50 ML PREMIX 100 MG IV (13:28)
[2024-09-08] MEDS: ROPivacaine 0.5% SDV 30 mL 150 MG INJECTION (13:49)
[2024-09-08] MEDS: lidocaine-epi 1% 20 mL INJ INJECTION (13:49)
[2024-09-08] MEDS: BUPivacaine 0.5% INJ 10 mL INJECTION (13:52)
--- NOTE | 2024-09-08 14:01 | P.OP_ITS ---
Operative Report Date of procedure: September 08, 2024 Surgeon: Srinivasa Rojas MD Procedure: Preop diagnosis: Right carpal tunnel syndrome with trigger fingers of index and long finger Postop diagnosis: Same Procedure: Right carpal tunnel release, right trigger finger releases of index and long finger Surgeon: Srinivasa Rojas MD Anesthesia: General EBL: None Indications: Betty is a 64-year-old white female was presented to the orthopedic clinic with positive EMG findings for carpal tunnel syndrome bilaterally. She also has a complaint of locking trigger fingers of index and long finger of this hand. After evaluation and clinical exam that was consistent with both trigger fingers as well as carpal tunnel syndrome patient was offered a surgical release of the right carpal tunnel as well as trigger finger release of the index and long finger. All risk benefits treatment alternatives were discussed with her and she is agreeable to proceed with this at this time. Procedure: After obtaining her consent patient was taken to the operating room and while still on her [facility] had general anesthetic administered. Once good anesthesia was achieved right upper extremity was prepped and draped using a fascia. After surgical timeout longitudinal incision was made from the distal flexion crease of the volar surface of the wrist distally along the ulnar border of the mid palmar crease. Sharp dissection taken on down to subcutaneous tissues and then taken on down the transverse carpal ligament. Transverse carpal ligament was opened up along the skin incision exposing the content. Then using Metzenbaum scissors within a sharp and blunt fashion transverse carpal ligament is divided both proximally and distally until good decompression was achieved. Wound was washed with sterile irrigation. Wound was closed with 3-0 nylon running horizontal mattress suture. Attention was turned towards the index finger and its trigger at the A1 lara. Skin incision was made to the flexor crease of the index finger at the level of the MCP joint. Sharp dissect taken on down subcutaneous tissue. Then in blunt and sharp fashion with tenotomy scissors dissection was done down to the tendon sheath. Tendon sheath was divided longitudinally with a #15 blade. The remainder of the A1 lara was released with small tenotomy scissors. Finger put the range of motion flexor tendon visualized directly demonstrating no further triggering. Subsequently a similar incision was made over the palmar crease of the third MCP joint. Sharp dissection through the skin and then on down blunt sharp fashion with tenotomy scissors to the tendon sheath. Tendon sheath again was divided longitudinally with #15 blade. This is then completed with a small tenotomy scissors. Fingers with range of motion demonstrated no further triggering of the tendon. These 2 were washed with sterile irrigation. Wounds are closed with simple horizontal mattress sutures. At this point carpal tunnel incision was injected with half percent Marcaine with 1% lidocaine with epinephrine for postop pain management. Trigger finger incision were then injected with half percent Marcaine plain for postop pain management. Wounds are clean dry dressed with Xeroform gauze, sterile gauze dressing, Kerlix wrap, and Toro wrap for compression. Patient was awakened transferred to cover room stable condition
[2024-09-08] MEDS: fentaNYL 50 mcg/mL INJ 2mL IVP ×2 (14:10→14:21)
[2024-09-08] MEDS: TRAMadol 50 mg Tablet PO (15:03)
--- NOTE | 2024-09-08 15:25 | ANE.PACU2 ---
Inpatient post-anesthesia follow up: Airway intact: Yes Vital signs: Temperature 97.1 F Pulse Rate 66 Respiratory Rate 16 Blood Pressure 126/72 Pulse Oximetry 97 Oxygen Delivery Me thod Room Air Oxygen Flow Rate 10 Fraction of Inspir ed Oxygen Hydration adequate: Yes Nausea and vomiting: No Pain level: 1 Mental status: Baseline
== END 2024-09-08 15:25 | disposition home or self-care (01) ==
PROVIDERS: PCP Family Medicine; Visit Provider Orthopaedic Surgery
PROC: (CPT 64721; principal; 2024-09-08 13:30)
PROC: (CPT 26055; 2024-09-08 13:30)
DX: G56.01 Carpal tunnel syndrome, right upper limb (principal); M65.321 Trigger finger, right index finger; M65.331 Trigger finger, right middle finger; K21.9 Gastro-esophageal reflux disease without esophagitis; M06.9 Rheumatoid arthritis, unspecified; F17.210 Nicotine dependence, cigarettes, uncomplicated; I10 Essential (primary) hypertension
CPT/HCPCS: 64721; 26055 ×2; J1100; J2405; J2704; J2795; J3010; J3490; J7030; J9999

== ENCOUNTER → 2024-09-29 09:45 | Outpatient (BNVA) | payer MEDICARE, SELFPAY | PROVIDERS: PCP Family Medicine; Visit Provider Orthopaedic Surgery | DX: Z98.890 Other specified postprocedural states (principal) | CPT/HCPCS: 99024 ==

== ENCOUNTER 2024-10-08 05:29 | Day surgery (SDC) | payer MEDICARE, SELFPAY ==
[2024-10-08] VITALS (10 sets, daily range): BP systolic 90–130; BP diastolic 59–81; PULSE 60–75; RESP 12–26; TEMP 36.1–36.3; O2SAT 93–100; BMI 28.2
[2024-10-08] MEDS: sodium chloride 0.9% 1,000 ML 30 ML IV (06:05)
--- NOTE | 2024-10-08 06:11 | ANES.PREANE2 ---
Pre-Anesthetic Assessment Height/Weight: Height 5 ft 6 in Temp Pulse Resp BP Pulse Ox O2 Del Method 97.4 F L 60 18 130/77 96 Room Air 10/08/24 05:59 10/08/24 05:59 10/08/24 05:59 10/08/24 05:59 10/08/24 05:59 10/08/24 05:59 Preop Diagnosis: Carpal tunnel syndrome Operation Date: 10/08/24 07:00 Proposed Procedures p LEFT Carpal Tunnel Release(Left) - Srinivasa Rojas MD s Trigger Finger Release(Left) - Srinivasa Rojas MD Was Beta Jose J taken within 24 hours: N/A Was Clonidine taken within 24 hours: N/A Last intake: Intake Last Liquid Date 10/07/24 Last Liquid Time 20:00 Last Solid Date 10/07/24 Last Solid Time 20:00 Social No alcohol and No tobacco Exam alert, oriented x 3, clear to auscultation bilaterally and regular rate & rhythm Airway Submandibular: within normal limits Cervical ROM: within normal limits Mallampati: Class III Dentition: false Anesthetic Plan ASA status: 3 Anesthesia: General Other: No prior issues with anesthesia, patient just had other side done and did well(LMA size 4) NPO since yesterday evening History of hypertension on metoprolol GERD on Protonix Patient has MGUS and rheumatoid arthritis. On upadacitinib Labs reviewed from 08/13/2024 acceptable for procedure Prior echo in 2021 showing EF of 65% Plan for general anesthesia with LMA Medications/Allergies Home Medications ?Medication ?Instructions ?Recorded ?Confirmed ?Last Taken ?Type albuterol sulfate 90 mcg/actuation 2 puff inhalation Q4H PRN 06/17/19 10/07/24 09/07/24 History aerosol inhaler (ProAir HFA) Shortness Of Breath Or Wheezing cholecalciferol (vitamin D3) 125 125 mcg PO DAILY 06/17/19 10/07/24 10/07/24 History mcg (5,000 unit) tablet (Vitamin D3) clonazepam 0.5 mg tablet (Klonopin) 0.5 mg PO BID 06/17/19 10/07/24 10/07/24 History nortriptyline 50 mg capsule 50 mg PO QPM 06/17/19 10/07/24 10/06/24 History pantoprazole 40 mg tablet,delayed 40 mg PO DAILY 06/17/19 10/08/24 10/08/24 History release (Protonix) venlafaxine 150 mg 150 mg PO BEDTIME 06/17/19 10/07/24 10/06/24 History capsule,extended release 24 hr (Effexor XR) ferrous sulfate 325 mg (65 mg 325 mg PO DAILY 10/05/19 10/07/24 05/23/23 History iron) tablet (Feosol) gabapentin 300 mg capsule 300 mg PO TID 10/18/20 10/08/24 10/08/24 History clopidogrel 75 mg tablet 75 mg PO DAILY 05/23/23 10/07/24 10/03/24 History metoprolol tartrate 25 mg tablet 25 mg PO BID 05/23/23 10/08/24 10/08/24 History diclofenac sodium 75 mg 75 mg PO Q12H PRN moderate to 08/13/24 10/07/24 10/04/24 Rx tablet,delayed release severe pain as needed #60 tabs upadacitinib 15 mg tablet,extended 15 mg PO DAILY #30 tabs 08/13/24 10/07/24 10/07/24 Rx release 24 hr (Rinvoq) fluconazole 50 mg tablet 50 mg PO DAILY 09/29/24 10/07/24 10/07/24 History amlodipine 5 mg tablet 5 mg PO DAILY 10/07/24 10/07/24 10/07/24 History leflunomide 20 mg tablet 20 mg PO DAILY 10/07/24 10/07/24 10/07/24 History Allergies Allergy/AdvReac Type Severity Reaction Status Date / Time cephalexin (From Keflex) Allergy Unknown Verified 10/08/24 05:51 Cephalosporins Allergy blisters Verified 10/08/24 05:51 in mouth and throat oxycodone (From Percodan) Allergy rash Verified 10/08/24 05:51 Current Medications Generic Name Dose Route Start Last Admin Trade Name Freq PRN Reason Stop Dose Admin Sodium Chloride 1,000 mls @ 30 mls/hr 10/08/24 06:00 10/08/24 06:05 Sodium Chloride 0.9% IV 10/09/24 05:59 30 mls/hr .Q24H RENNY Administration PFSH Anesthesia Medical History High risk medication use Immunization counseling Spondylolisthesis, lumbar region Intervertebral disc disorder with radiculopathy of lumbar region Intervertebral disc disorder with radiculopathy of lumbosacral region High risk medication use Chronic migraine without aura, intractable, with status migrainosus Rheumatoid arthritis, seropositive, multiple sites Surgical History History of decompression of ulnar nerve 07/29/2008 Dr. Riley Dos Santos: Right History of hysterectomy (~1999) non cancerous, ovaries remain History of arthroplasty of right knee (~10/2017) total, Dr. Martin Family History Mother Lung cancer age 58 Father Lupus anticoagulant disorder CAD (coronary artery disease) age 70 Grandmother CAD (coronary artery disease) Grandfather CAD (coronary artery disease) Social History Smoking and tobacco/nicotine status: current every day tobacco/nicotine user cigarettes Alcohol intake: never Substance/Drug Use: current Caregiver/support person: Yes Household members: spouse Marital status: Current occupational status: disabled Data Anesthesia Cardiac Studies: Echocardiogram 12/01/21 Holter Monitor 09/12/21
[2024-10-08] MEDS: clindamycin 600 MG/50 ML PREMIX 100 MG IV (07:02)
--- NOTE | 2024-10-08 07:07 | W.PM.OPSUD ---
Surgery/Procedure H&P Update DATE OF PROCEDURE: October 08, 2024 DATE H&P PERFORMED: 09/29/24 H&P UPDATE INFORMATION: I have reviewed H&P completed within last 30 days, I have examined patient prior to procedure and No changes to prior documentation PREOP DIAGNOSIS: Carpal tunnel syndrome PLANNED PROCEDURE: Operation Date: 10/08/24 07:00 Proposed Procedures p LEFT Carpal Tunnel Release(Left) - Srinivasa Rojas MD s Trigger Finger Release(Left) - Srinivasa Rojas MD
[2024-10-08] MEDS: BUPivacaine 0.5% INJ 10 mL INJECTION (07:21)
[2024-10-08] MEDS: ROPivacaine 0.5% SDV 30 mL 150 MG INJECTION (07:22)
[2024-10-08] MEDS: lidocaine-epi 1% 20 mL INJ INJECTION (07:22)
--- NOTE | 2024-10-08 07:40 | PM.OP ---
Operative Report Date of procedure: October 08, 2024 Surgeon: Srinivasa Rojas MD Procedure: Preoperative diagnosis: Left carpal tunnel syndrome and left trigger finger long finger Postoperative diagnosis: Same Procedure: Trigger finger release of the left long finger, left carpal tunnel release Surgeon: Srinivasa Rojas MD Anesthesia: General With local anesthetic EBL: None Tourniquet time: 15 minutes at 250 mm Indications: Arabella is a 64-year-old white female who has been seen in the orthopedic clinics in the past for bilateral carpal tunnel syndrome as well as trigger fingers of both hands. She has previously undergone the right releases. Now back in for left carpal tunnel release as well as a trigger finger release of her left long finger. Patient is well aware of risks benefits and treatment alternatives. Patient is agreeable to proceed with surgical intervention. Procedure: After obtaining written consent patient was taken to the operating room and left on her transport gurney. General anesthetic was administered. Once good anesthesia achieved pneumatic cuffs placed around proximal left arm. Left arm was prepped and draped in usual fashion. After surgical timeout Esmarch exsanguination of the left arm was done and pneumatic cuff is inflated 250 mmHg. Initial incision was made over the A1 lara of the long finger left hand. This was through the distal flexion crease of the palm at the level of the third digit. Sharp dissection taken on down to subcutaneous tissue and then with blunt and sharp dissection with small tenotomy scissors tendon sheath was identified. Tendon sheath was divided longitudinally with a #15 blade. Then this incision was extended with tenotomy scissors and a sharp and blunt fashion. The A1 lara was released fingers but range of motion demonstrated no further triggering. This wound was then closed with 3-0 nylon simple sutures. Second incision was then made on the palmar surface from the distal flexion crease distally approximately 1-1/2 to 2 cm just ulnar to the mid palmar crease. Patient did react to this and therefore half percent Marcaine plain was injected into the area for anesthetic effect. Dissection was then taken on down to subcutaneous tissues with a #15 blade. Continued sharp dissection was taken all the way down the transverse carpal ligament. This is divided longitudinally along the course of the skin incision. Once within the carpal tunnel Metzenbaum scissors and a blunt sharp fashion was then used to divide the transverse metacarpal ligament both proximally and distally. Once adequate decompression had been achieved wound was closed with 3-0 nylon horizontal mattress suture. Wounds were then cleaned and dried. Xeroform gauze was applied. Gauze fluff dressings were applied as well as Kerlix wrap. Toro wrap for compression was then applied. Patient was awakened transferred to the cover room in stable condition
[2024-10-08] MEDS: TRAMadol 50 mg Tablet PO (08:38)
--- NOTE | 2024-10-08 09:05 | ANE.PACU2 ---
Inpatient post-anesthesia follow up: Airway intact: Yes Vital signs: Temperature 97.1 F Pulse Rate 69 Respiratory Rate 16 Blood Pressure 111/77 Pulse Oximetry 94 Oxygen Delivery Me thod Room Air Oxygen Flow Rate 8 Fraction of Inspir ed Oxygen Hydration adequate: Yes Nausea and vomiting: No Pain level: 1 Mental status: Baseline
== END 2024-10-08 09:05 | disposition home or self-care (01) ==
PROVIDERS: PCP Family Medicine; Visit Provider Orthopaedic Surgery
PROC: (CPT 64721; principal; 2024-10-08 07:00)
PROC: (CPT 26055; 2024-10-08 07:00)
DX: G56.02 Carpal tunnel syndrome, left upper limb (principal); M65.332 Trigger finger, left middle finger; K21.9 Gastro-esophageal reflux disease without esophagitis; I10 Essential (primary) hypertension; F17.210 Nicotine dependence, cigarettes, uncomplicated
CPT/HCPCS: 64721; 26055; J2704; J2795; J3010; J3490; J7030; J9999

== ENCOUNTER 2024-10-19 17:14 | Emergency (ER) | payer MEDICARE, SELFPAY ==
[2024-10-19 17:26] VITALS: BP 126/81; PULSE 89; RESP 21; TEMP 36.6; O2SAT 100; BMI 27.3
--- NOTE | 2024-10-19 18:03 | W.ED.WOUNDLC ---
HPI - Wound/Laceration General: Chief Complaint: Wound/Laceration Stated Complaint: L hand swelling, pain with discharge Time Seen by Provider: 10/19/24 17:42 History of Present Illness: Patient is a 64-year-old female that had a left carpal tunnel and trigger finger release on 10/08/2024 that presents to the ED with redness to her distal palm, pain, redness, drainage in the distal portion of the palm, and localized redness in the proximal portion where sutures are. Patient stated she got the bandage wet on Saturday, 3 days ago, removed it, and noted that she had a white area in the distal palm. This has worsened to redness, swelling, pain. She did not remove her dressing until it was wet this past Saturday, according to patient. She admits to decreased appetite, nausea. No fevers. Associated symptoms: Reports nausea; Denies chills, fever(s) or vomiting Related Data Home Medications ?Medication ?Instructions ?Recorded ?Confirmed albuterol sulfate 90 mcg/actuation 2 puff inhalation Q4H PRN 06/17/19 10/19/24 aerosol inhaler (ProAir HFA) Shortness Of Breath Or Wheezing cholecalciferol (vitamin D3) 125 125 mcg PO DAILY 06/17/19 10/19/24 mcg (5,000 unit) tablet (Vitamin D3) clonazepam 0.5 mg tablet (Klonopin) 0.5 mg PO BID 06/17/19 10/19/24 nortriptyline 50 mg capsule 50 mg PO QPM 06/17/19 10/19/24 pantoprazole 40 mg tablet,delayed 40 mg PO DAILY 06/17/19 10/19/24 release (Protonix) venlafaxine 150 mg 150 mg PO BEDTIME 06/17/19 10/19/24 capsule,extended release 24 hr (Effexor XR) ferrous sulfate 325 mg (65 mg 325 mg PO DAILY 10/05/19 10/19/24 iron) tablet (Feosol) gabapentin 300 mg capsule 300 mg PO TID 10/18/20 10/19/24 clopidogrel 75 mg tablet 75 mg PO DAILY 05/23/23 10/19/24 metoprolol tartrate 25 mg tablet 25 mg PO BID 05/23/23 10/19/24 fluconazole 50 mg tablet 50 mg PO DAILY 09/29/24 10/19/24 amlodipine 5 mg tablet 5 mg PO DAILY 10/07/24 10/19/24 leflunomide 20 mg tablet 20 mg PO DAILY 10/07/24 10/19/24 Previous Rx's ?Medication ?Instructions ?Recorded diclofenac sodium 75 mg 75 mg PO Q12H PRN moderate to 08/13/24 tablet,delayed release severe pain as needed #60 tabs upadacitinib 15 mg tablet,extended 15 mg PO DAILY #30 tabs 08/13/24 release 24 hr (Rinvoq) tramadol 50 mg tablet 50 mg PO Q6H PRN pain #30 tabs 10/08/24 doxycycline hyclate 100 mg capsule 100 mg PO BID 14 days #28 caps 10/19/24 Allergies Allergy/AdvReac Type Severity Reaction Status Date / Time cephalexin (From Keflex) Allergy Unknown Verified 10/19/24 16:31 Cephalosporins Allergy blisters Verified 10/19/24 16:31 in mouth and throat oxycodone (From Percodan) Allergy rash Verified 10/19/24 16:31 Review of Systems General: Reports: 10 or more systems reviewed and unremarkable except in HPI and below Const: Denies: fever(s) or chills Eyes: Denies: change in vision or blurry vision ENMT: Denies: throat pain or mouth pain Card: Denies: chest pain or palpitations Resp: Denies: dyspnea or productive cough GI: Reports: nausea; Denies: abdominal pain or vomiting : Denies: flank pain or difficulty voiding Musc: Reports: extremity pain, extremity swelling, joint swelling and joint redness Skin/Breast: Reports: erythema, skin tenderness, skin swelling and surgical incision; Denies: rash Neuro: Denies: headache(s) or numbness in extremities Psych: Denies: anxiety or depression Endo: Denies: polyuria PFSH ED PFSH: Medical History High risk medication use Immunization counseling Spondylolisthesis, lumbar region Intervertebral disc disorder with radiculopathy of lumbar region Intervertebral disc disorder with radiculopathy of lumbosacral region High risk medication use Chronic migraine without aura, intractable, with status migrainosus Rheumatoid arthritis, seropositive, multiple sites Surgical History History of decompression of ulnar nerve 07/29/2008 Dr. Riley Dos Santos: Right History of hysterectomy (~1999) non cancerous, ovaries remain History of arthroplasty of right knee (~10/2017) total, Dr. Martin Family History Mother Lung cancer age 58 Father Lupus anticoagulant disorder CAD (coronary artery disease) age 70 Grandmother CAD (coronary artery disease) Grandfather CAD (coronary artery disease) Social History Smoking and tobacco/nicotine status: current every day tobacco/nicotine user cigarettes Alcohol intake: never Substance/Drug Use: current Caregiver/support person: Yes Household members: spouse Marital status: Current occupational status: disabled Physical Exam Const: COMMON NORMALS: no acute distress, average body habitus and patient oriented x3 HENMT: COMMON NORMALS: normocephalic and atraumatic HEAD & SCALP: normocephalic and atraumatic Neck/C-Spine: COMMON NORMALS: full ROM and no lymphadenopathy Lymph: LYMPHATIC: no lymphadenopathy noted Resp: COMMON NORMALS: normal respiratory effort and clear to auscultation bilaterally AUSCULTATION: clear to auscultation bilaterally Cardio: COMMON NORMALS: regular rate and regular rhythm RATE: regular rate RHYTHM: regular rhythm GI: COMMON NORMALS: Normal to inspection, nondistended, normoactive bowel sounds present, Soft to palpation, non-tender and No hepatosplenomegaly present PALPATION: Yes Soft to palpation and Yes No hepatosplenomegaly present : COMMON NORMALS: Yes no CVA tenderness BLADDER/KIDNEY EXAM: Yes no CVA tenderness Back/Pelvis: COMMON NORMALS: no CVA tenderness Extremity: COMMON NORMALS: capillary refill normal LEFT UPPER EXTREMITY: Yes hand & digits Left hand and digits: Yes inspection (white area distal palm with surrounding redness, clear drainage), Yes palpation (pain in distal dorsum of palm with redness), Yes ROM (decreased due to pain) and Yes neurovascular exam (intact) Neuro: COMMON NORMALS: patient oriented x3 Psych: COMMON NORMALS: mental status grossly normal and Normal thought process present THOUGHT PROCESS: Normal thought process present Skin: SKIN IMAGES (FEMALE):  1. white, minimal open with surrounding red mild edema 2. sutures, minimal yellow drainage Course Consultations: Consultation #1: Discussed with Dr. Rojas. Since that hand is draining, most likely there is no need for CT at this time. Will treat with antibiotics for coverage of MRSA. Patient has appointment with Dr. Rojas tomorrow. Vital Signs: Vital signs: Vital Signs Temperature 97.9 F 10/19/24 17:26 Pulse Rate 89 10/19/24 17: Respiratory Rate 21 H 10/19/24 17:26 Blood Pressure 126/81 10/19/24 17:26 Pulse Oximetry 100 10/19/24 17:26 Oxygen Delivery Me thod Room Air 10/19/24 17:26 MDM - Wound/Laceration Medical Decision Making Patient is a 64-year-old female with carpal tunnel and trigger finger release on 10/08 that presented for redness, draining, whiteness, edema, and pain after her area where she had surgery became wet externally on Saturday, 3 days ago, she unwrapped the bandages, and had a white area that was draining. She has been in contact with her surgeon. Discussed with her surgeon. Surgeon will follow-up with patient tomorrow. Placed on antibiotics for MRSA coverage. Lab Data 10/19/24 18:04 10/19/24 18:04 Laboratory Results WBC 15.15 10^3/uL (3.29-11.43) H 10/19/24 18:04 RBC 4.41 10^6/uL (3.85-5.65) 10/19/24 18:04 Hgb 13.20 g/dL (11.27-16.99) 10/19/24 18:04 Hct 38.7 % (36-47) 10/19/24 18:04 MCV 87.8 fl (85-98) 10/19/24 18:04 MCH 29.9 pg (27-33) 10/19/24 18:04 MCHC 34.1 g/dL (30-55) 10/19/24 18:04 RDW 14.1 % (12.1-15.1) 10/19/24 18:04 Plt Count 216 10^3/cmm (157-399) 10/19/24 18:04 MPV 11.5 fL (7.4-10.4) H 10/19/24 18:04 Neut % (Auto) 64.8 % 10/19/24 18:04 Lymph % (Auto) 25.9 % 10/19/24 18:04 [place] % (Auto) 8.1 % 10/19/24 18:04 Eos % (Auto) 0.3 % 10/19/24 18:04 Baso % (Auto) 0.5 % 10/19/24 18:04 Neut # (Auto) 9.82 10^3/uL (1.8-7.7) H 10/19/24 18:04 Lymph # (Auto) 3.9 10^3/uL (0.8-4.8) 10/19/24 18:04 [place] # (Auto) 1.2 10^3/uL (0.2-0.9) H 10/19/24 18:04 Eos # (Auto) 0.1 10^3/uL (0.0-0.8) 10/19/24 18:04 Baso # (Auto) 0.1 10^3/uL (0.0-0.1) 10/19/24 18:04 Nucleated RBC % (auto) 0 % 10/19/24 18:04 Nucleated RBCs # 0.0 /100WBC 10/19/24 18:04 Sodium 134 mmol/L (136-145) L 10/19/24 18:04 Potassium 4.3 mmol/L (3.5-5.1) 10/19/24 18:04 Chloride 96 mmol/L (98-107) L 10/19/24 18:04 Carbon Dioxide 19 mmol/L (22-29) L 10/19/24 18:04 Anion Gap 23.3 (5-19) H 10/19/24 18:04 BUN 16 mg/dL (8-23) 10/19/24 18:04 Creatinine 1.5 mg/dL (0.5-0.9) H 10/19/24 18:04 GFR Calculation 34.7 mL/min (90-130) L 10/19/24 18:04 Glucose 93 mg/dL (65-115) 10/19/24 18:04 Calculated Osmolality 279 mOsm/kg (285-295) L 10/19/24 18:04 Calcium 9.2 mg/dL (8.5-10.5) 10/19/24 18:04 Total Bilirubin 0.5 mg/dL (0.15-1.2) 10/19/24 18:04 AST 16 U/L (0-32) 10/19/24 18:04 ALT 13 U/L (0-33) 10/19/24 18:04 Alkaline Phosphatase 125 U/L (35-105) H 10/19/24 18:04 Total Protein 7.9 g/dL (6.6-8.7) 10/19/24 18:04 Albumin 4.2 g/dL (3.5-5.2) 10/19/24 18:04 Globulin 3.7 g/dL (1.3-4.6) 10/19/24 18:04 No radiology studies performed this visit Discharge Plan Discharge Patient Disposition: Home Clinical Impression: Cellulitis of dorsum of hand, Infected surgical wound Condition: Stable Prescriptions: New doxycycline hyclate 100 mg capsule 100 mg PO BID 14 Days Qty: 28 0RF No Action ferrous sulfate [Feosol] 325 mg (65 mg iron) tablet 325 mg PO DAILY gabapentin 300 mg capsule 300 mg PO TID albuterol sulfate [ProAir HFA] 90 mcg/actuation HFA aerosol inhaler 2 puff INHALATION Q4H PRN (Reason: Shortness Of Breath Or Wheezing) pantoprazole [Protonix] 40 mg tablet,delayed release (DR/EC) 40 mg PO DAILY clonazepam [Klonopin] 0.5 mg tablet 0.5 mg PO BID venlafaxine [Effexor XR] 150 mg capsule,extended release 24hr 150 mg PO BEDTIME nortriptyline 50 mg capsule 50 mg PO QPM cholecalciferol (vitamin D3) [Vitamin D3] 125 mcg (5,000 unit) tablet 125 mcg PO DAILY Rinvoq 15 mg tablet extended release 24 hr 15 mg PO DAILY Qty: 30 5RF diclofenac sodium 75 mg tablet,delayed release (DR/EC) 75 mg PO Q12H PRN (Reason: moderate to severe pain as needed) Qty: 60 1RF fluconazole 50 mg tablet 50 mg PO DAILY leflunomide 20 mg tablet 20 mg PO DAILY Rx Instructions: TAKE 1 TABLET BY MOUTH EVERY DAY amlodipine 5 mg Tablet 5 mg PO DAILY tramadol 50 mg tablet 50 mg PO Q6H PRN (Reason: pain) Qty: 30 0RF metoprolol tartrate 25 mg Tablet 25 mg PO BID clopidogrel 75 mg tablet 75 mg PO DAILY Discharge Orders: Discharge ED (Routine); Ordered 10/19/24 Ordered By: Gisela Stewart Referrals: Srinivasa Rojas MD [Physician, Orthopedics] Referral Note: Follow up tomorrow as scheduled Chapin Julio MD [Primary Care Provider, Family Practice] Discharge Diet: Usual diet Discharge Activity: Resume usual activity Patient Instructions: Cellulitis (ED) Activity Restrictions/Additional Instructions: Follow-up with Dr. Rojas as scheduled tomorrow Take doxycycline with a little bit of food. Utilize probiotic or active culture yogurt to avoid infectious diarrhea daily. If the hand becomes worsening redness, fever, call your orthopedic or return to ED Print Language: Mauritanian Coding Level of Care Code ED Office Support Assistant for Amanda Watkins
[2024-10-19] MEDS: doxycycline 100 mg Tablet PO (18:14)
[2024-10-19] MEDS: HYDROcodone-acetaminophen 10-325 mg Tablet 1 TAB PO (18:14)
[2024-10-19 18:31] LABS: Basophils # 0.1 10^3/uL (0.0-0.1); Basophils % 0.5 %; Eosinophils # 0.1 10^3/uL (0.0-0.8); Eosinophils % 0.3 %; Hematocrit 38.7 % (36-47); Lymphocytes # 3.9 10^3/uL (0.8-4.8); Lymphocytes % 25.9 %; Mean Corpuscular HGB Conc 34.1 g/dL (30-55); Mean Corpuscular Hemoglobin 29.9 pg (27-33); Mean Corpuscular Volume 87.8 fl (85-98); Mean Platelet Volume 11.5 fL (7.4-10.4); Monocytes # 1.2 10^3/uL (0.2-0.9); Monocytes % 8.1 %; Neutrophils # 9.82 10^3/uL (1.8-7.7); Neutrophils % 64.8 %; Nucleated Red Blood Cells % 0 %; Platelet Count 216 10^3/cmm (157-399); Red Blood Count 4.41 10^6/uL (3.85-5.65); Red Cell Distribution Width 14.1 % (12.1-15.1); White Blood Count 15.15 10^3/uL (3.29-11.43)
[2024-10-19 18:53] LABS: Alanine Aminotransferase 13 U/L (0-33); Albumin Level 4.2 g/dL (3.5-5.2); Alkaline Phosphatase 125 U/L (35-105); Anion Gap 23.3 (5-19); Aspartate Amino Transferase 16 U/L (0-32); Blood Urea Nitrogen 16 mg/dL (8-23); Calcium 9.2 mg/dL (8.5-10.5); Carbon Dioxide 19 mmol/L (22-29); Chloride 96 mmol/L (98-107); Creatinine Clr Calc Pharmacy 37.2482; Globulin 3.7 g/dL (1.3-4.6); Glomerular Filtration Rate 34.7 mL/min (90-130); Glucose 93 mg/dL (65-115); Osmolality Calculated 279 mOsm/kg (285-295); Potassium 4.3 mmol/L (3.5-5.1); Sodium 134 mmol/L (136-145); Total Bilirubin 0.5 mg/dL (0.15-1.2); Total Protein 7.9 g/dL (6.6-8.7)
== END 2024-10-19 18:21 | disposition home or self-care (01) ==
PROVIDERS: Emergency Medicine; Emergency Provider Physician Assistant; PCP Family Medicine
DX: L03.114 Cellulitis of left upper limb (principal); T81.49XA Infection following a procedure, other surgical site, initial encounter; X58.XXXA Exposure to other specified factors, initial encounter; Z79.02 Long term (current) use of antithrombotics/antiplatelets; F17.210 Nicotine dependence, cigarettes, uncomplicated
CPT/HCPCS: 80053; 85025; 99283; J9999

== ENCOUNTER → 2024-10-20 08:58 | Outpatient (BNVA) | payer MEDICARE, SELFPAY | PROVIDERS: PCP Family Medicine; Visit Provider Orthopaedic Surgery | DX: T81.31XD Disruption of external operation (surgical) wound, not elsewhere classified, subsequent encounter (principal); Y83.8 Other surgical procedures as the cause of abnormal reaction of the patient, or of later complication, without mention of misadventure at the time of the procedure | CPT/HCPCS: 99024 ==

== ENCOUNTER → 2024-10-22 10:45 | Outpatient (BNVA) | payer MEDICARE, SELFPAY | PROVIDERS: PCP Family Medicine; Visit Provider Orthopaedic Surgery | DX: T81.49XA Infection following a procedure, other surgical site, initial encounter (principal); Y83.8 Other surgical procedures as the cause of abnormal reaction of the patient, or of later complication, without mention of misadventure at the time of the procedure | CPT/HCPCS: 99024 ==

== ENCOUNTER 2024-10-23 11:02 | Day surgery (SDC) | payer MEDICARE, SELFPAY ==
[2024-10-23] VITALS (19 sets, daily range): BP systolic 111–163; BP diastolic 60–93; PULSE 70–99; RESP 15–22; TEMP 36.4–36.6; O2SAT 92–99; BMI 27.4
[2024-10-23] MEDS: sodium chloride 0.9% 1,000 ML 30 ML IV (12:00)
[2024-10-23] MEDS: albuterol 2.5 mg/3 mL Neb INHALATION (12:14)
--- NOTE | 2024-10-23 12:42 | W.PM.OPSUD ---
Surgery/Procedure H&P Update DATE OF PROCEDURE: October 23, 2024 DATE H&P PERFORMED: 10/22/24 H&P UPDATE INFORMATION: I have reviewed H&P completed within last 30 days, I have examined patient prior to procedure and No changes to prior documentation PREOP DIAGNOSIS: Postoperative wound infection left hand PLANNED PROCEDURE: Operation Date: 10/23/24 13:05 Proposed Procedures p Incision & Drainage Upper Extremity(Left) - Srinivasa Rojas MD
--- NOTE | 2024-10-23 12:44 | ANES.PREANE2 ---
Pre-Anesthetic Assessment Height/Weight: Height 1.65 m Weight 74.843 kg O2 Del Method Room Air 10/23/24 11:40 Preop Diagnosis: Postoperative wound infection left hand Operation Date: 10/23/24 13:05 Proposed Procedures p Incision & Drainage Upper Extremity(Left) - Srinivasa Rojas MD Familial anesthetic complications: none Was Beta Jose J taken within 24 hours: Yes Was Clonidine taken within 24 hours: Yes Last intake: Intake Last Liquid Date 10/23/24 Last Liquid Time 01:00 Last Solid Date 10/23/24 Last Solid Time 01:00 Social Tobacco (1ppd) and No alcohol Exam alert, oriented x 3 and clear to auscultation bilaterally (breathing tx given in pre-op) Airway Submandibular: within normal limits Cervical ROM: within normal limits Mallampati: Class I Dentition: false Pulmonary Chronic Obstructive Pulmonary Disease CV/HEM Hypertension None reported Hepatic None reported GI Gastroesophageal Reflux Disease Metabolic Hyperlipidemia and Thyroid Disease (cyst) Musc/skel Rheumatoid Arthritis Neuropsych Anxiety and Bipolar Anesthetic Plan ASA status: 3 Anesthesia: Anesthesia Evaluation and General Medications/Allergies Home Medications ?Medication ?Instructions ?Recorded ?Confirmed ?Last Taken ?Type albuterol sulfate 90 mcg/actuation 2 puff inhalation Q4H PRN 06/17/19 10/22/24 10/22/24 History aerosol inhaler (ProAir HFA) Shortness Of Breath Or Wheezing cholecalciferol (vitamin D3) 125 125 mcg PO DAILY 06/17/19 10/22/24 10/07/24 History mcg (5,000 unit) tablet (Vitamin D3) clonazepam 0.5 mg tablet (Klonopin) 0.5 mg PO BID 06/17/19 10/22/24 10/23/24 History nortriptyline 50 mg capsule 50 mg PO QPM 06/17/19 10/22/24 10/22/24 History pantoprazole 40 mg tablet,delayed 40 mg PO DAILY 06/17/19 10/22/24 10/23/24 History release (Protonix) venlafaxine 150 mg 150 mg PO BEDTIME 06/17/19 10/22/24 10/22/24 History capsule,extended release 24 hr (Effexor XR) ferrous sulfate 325 mg (65 mg 325 mg PO DAILY 10/05/19 10/22/24 10/22/24 History iron) tablet (Feosol) gabapentin 300 mg capsule 900 mg PO TID 10/18/20 10/22/24 10/23/24 History clopidogrel 75 mg tablet 75 mg PO DAILY 05/23/23 10/22/24 10/22/24 History metoprolol tartrate 25 mg tablet 25 mg PO BID 05/23/23 10/22/24 10/23/24 History diclofenac sodium 75 mg 75 mg PO Q12H PRN moderate to 08/13/24 10/22/24 10/22/24 Rx tablet,delayed release severe pain as needed #60 tabs upadacitinib 15 mg tablet,extended 15 mg PO DAILY #30 tabs 08/13/24 10/22/24 10/22/24 Rx release 24 hr (Rinvoq) amlodipine 5 mg tablet 5 mg PO DAILY 10/07/24 10/22/24 10/22/24 History leflunomide 20 mg tablet 20 mg PO DAILY 10/07/24 10/22/24 10/22/24 History doxycycline hyclate 100 mg capsule 100 mg PO BID 14 days #28 caps 10/20/24 10/22/24 10/23/24 Rx tramadol 50 mg tablet 50 mg PO Q6H PRN pain #30 tabs 10/20/24 10/22/24 10/22/24 Rx felodipine 10 mg tablet,extended 10 mg PO DAILY 10/23/24 10/23/24 10/23/24 History release 24 hr Allergies Allergy/AdvReac Type Severity Reaction Status Date / Time cephalexin (From Keflex) Allergy ALGY-Bliste Verified 10/22/24 15:32 r Cephalosporins Allergy blisters Verified 10/22/24 10:58 in mouth and throat oxycodone (From Percodan) Allergy rash Verified 10/22/24 10:58 Current Medications Generic Name Dose Route Start Last Admin Trade Name Freq PRN Reason Stop Dose Admin Sodium Chloride 1,000 mls @ 30 mls/hr 10/23/24 12:00 10/23/24 12:00 Sodium Chloride 0.9% IV 10/24/24 11:59 30 mls/hr .Q24H RENNY Administration PFSH Anesthesia Medical History High risk medication use Immunization counseling Spondylolisthesis, lumbar region Intervertebral disc disorder with radiculopathy of lumbar region Intervertebral disc disorder with radiculopathy of lumbosacral region High risk medication use Chronic migraine without aura, intractable, with status migrainosus Rheumatoid arthritis, seropositive, multiple sites Surgical History History of decompression of ulnar nerve 07/29/2008 Dr. Riley Dos Santos: Right History of hysterectomy (~1999) non cancerous, ovaries remain History of arthroplasty of right knee (~10/2017) total, Dr. Martin Family History Mother Lung cancer age 58 Father Lupus anticoagulant disorder CAD (coronary artery disease) age 70 Grandmother CAD (coronary artery disease) Grandfather CAD (coronary artery disease) Social History Smoking and tobacco/nicotine status: current every day tobacco/nicotine user cigarettes Alcohol intake: never Substance/Drug Use: current Caregiver/support person: Yes Household members: spouse Marital status: Current occupational status: disabled Data Anesthesia Cardiac Studies: Echocardiogram 12/01/21 Holter Monitor 09/12/21
[2024-10-23] MEDS: clindamycin 600 MG/50 ML PREMIX 100 MG IV (13:28)
[2024-10-23] MEDS: fentaNYL 50 mcg/mL INJ 2mL IVP ×2 (13:51→14:02)
--- NOTE | 2024-10-23 13:55 | PM.OP ---
Operative Report Date of procedure: October 23, 2024 Surgeon: Srinivasa Rojas MD Procedure: Preoperative diagnosis: Status post trigger finger release with infected left hand wound Postop diagnosis: Same Procedure: Open irrigation debridement of left hand wound. Surgeon: Srinivasa Rojas MD Anesthesia: General EBL: 5 cc Tourniquet time: 13 minutes at 250 mmHg Indications: Meena is a 64-year-old white female who had a left carpal tunnel and trigger finger release just over 2 weeks ago. Subsequently coming to the end of the 2 weeks postoperatively he was having drainage and wound breakdown and was seen in the clinic. She was started on antibiotics in the emergency room where she was seen the night before. Upon initial evaluation after the ER visit it appeared that there was minimal drainage and patient indicated that swelling and erythema had diminished. However the patient followed up several days later and there is copious amounts of serous fluid coming from her wound of the palmar region with redness and swelling of her middle finger. Therefore at that time is felt patient would benefit from irrigation debridement washout of the wound and exploration of the tendon sheath. All risk benefits treatment alternatives were discussed with her and she and her are agreeable to this at this time. Procedure: After obtaining her consent patient was taken the operative room and while still on her hospital [facility] had general anesthetic administered. Once [place] was achieved pneumatic cuffs placed around proximal left arm her left arm was prepped draped usual fashion. After surgical timeout arm was exsanguinated by gravity and then pneumatic cuff inflated 250 mmHg. Palmar incision was widened to allow for further exploration of the wound. By milking down the tendon sheath from distal to proximal purulent material was extracted. Cultures were obtained of this at this time. Subsequently this is milked further and that continue to show more purulent material coming out from there. At this point an incision was made perpendicular to the axis of the long finger through the flexion crease of the DIP joint. Sharp dissection taken on down to the tendon sheath and this open. At first 18-gauge IV cannula was placed down into the wound and attempted. To wash irrigation through the tendon sheath. This was unsuccessful. Incision was then creased in size by a diagonal incision starting at the DIP ulnar edge. And going diagonally towards the radial portion of the PIP joint. Sharp dissection was taken all the way down the tendon sheath until the tendon sheath to be open better. At this point a 14-gauge spinal needle catheter was then used to insert into the tendon sheath and irrigation was placed through this, this irrigation with had hexachlorophene and it as well as sterile saline. Irrigation was done until exiting fluid from the palmar incision was clear. Further milking of the tendon demonstrated no further purulent material coming from that. At this point edges of the wounds were tacked down with 3-0 Prolene interrupted sutures. This is done on both the distal and proximal wound. These were left slightly open to allow for drainage. At this point Xeroform gauze was applied over the wounds. Fluff gauze dressing was applied over the wounds also at this time and then a Curlex wrap was used to wrap of the hand as well as the 3 lateral digits. Toro wrap was placed over this as well as tape to hold it in place. Patient was then awakened transferred to cover room stable condition. It should be noted that midway through this case the neck cuff is deflated due to poor cap refill of the distal long finger of the left hand. Once this was released capillary refill improved on this finger.
[2024-10-23] MEDS: HYDROmorphone 1 mg/mL INJ 1ml 0.5 MG IVP ×2 (14:16→14:26)
[2024-10-23] MEDS: TRAMadol 50 mg Tablet PO (15:15)
--- NOTE | 2024-10-23 15:35 | ANE.PACU2 ---
Inpatient post-anesthesia follow up: Airway intact: Yes Vital signs: Temperature 97.9 F Pulse Rate 76 Respiratory Rate 17 Blood Pressure 140/60 Pulse Oximetry 97 Oxygen Delivery Me thod Room Air Oxygen Flow Rate 3 Fraction of Inspir ed Oxygen Hydration adequate: Yes Nausea and vomiting: No Pain level: 1 Mental status: Baseline
== END 2024-10-23 15:35 | disposition home or self-care (01) ==
PROVIDERS: PCP Family Medicine; Visit Provider Orthopaedic Surgery
PROC: (CPT 11042; principal; 2024-10-23 12:55)
DX: T81.49XA Infection following a procedure, other surgical site, initial encounter (principal); J44.9 Chronic obstructive pulmonary disease, unspecified; I10 Essential (primary) hypertension; K21.9 Gastro-esophageal reflux disease without esophagitis; E78.5 Hyperlipidemia, unspecified; E07.9 Disorder of thyroid, unspecified; M06.9 Rheumatoid arthritis, unspecified; F41.9 Anxiety disorder, unspecified; F31.9 Bipolar disorder, unspecified; F17.210 Nicotine dependence, cigarettes, uncomplicated
CPT/HCPCS: 11042; 87070; 87075; 87186; 87205; J1100; J1171; J2405; J2704; J3010; J3490; J7030; J7613; J9999

== ENCOUNTER → 2024-10-26 13:20 | Outpatient (BNVA) | payer MEDICARE, SELFPAY | PROVIDERS: PCP Family Medicine; Visit Provider Orthopaedic Surgery | DX: Z98.890 Other specified postprocedural states (principal) | CPT/HCPCS: 99024 ==

== ENCOUNTER → 2024-11-03 13:24 | Outpatient (BNVA) | payer MEDICARE, SELFPAY | PROVIDERS: PCP Family Medicine; Visit Provider Orthopaedic Surgery | DX: M79.642 Pain in left hand (principal); T81.49XA Infection following a procedure, other surgical site, initial encounter; Y83.8 Other surgical procedures as the cause of abnormal reaction of the patient, or of later complication, without mention of misadventure at the time of the procedure | CPT/HCPCS: 99213 ==

== ENCOUNTER 2024-11-04 15:16 | Observation (INO) | payer MEDICARE, SELFPAY ==
[2024-11-04] VITALS (14 sets, daily range): BP systolic 101–188; BP diastolic 60–103; PULSE 66–93; RESP 16–19; TEMP 36.3–36.9; O2SAT 95–100; BMI 26.9
--- NOTE | 2024-11-04 13:19 | ANES.PREANE2 ---
Pre-Anesthetic Assessment Height/Weight: Height 5 ft 5 in Preop Diagnosis: infected surgical wound Operation Date: 11/04/24 14:25 Proposed Procedures p Incision & Drainage LEFT Hand(Left) - Srinivasa Rojas MD Was Beta Jose J taken within 24 hours: N/A Was Clonidine taken within 24 hours: N/A Social No alcohol and No tobacco Exam alert, oriented x 3, clear to auscultation bilaterally and regular rate & rhythm Airway Submandibular: within normal limits Cervical ROM: within normal limits Mallampati: Class III Dentition: false Anesthetic Plan ASA status: 3 Anesthesia: Choice Other: No prior issues with anesthesia, GA for carpal tunnel sx with LMA size 4 NPO since yesterday evening History of hypertension on metoprolol GERD on Protonix Patient has MGUS and rheumatoid arthritis. On upadacitinib Labs reviewed from 08/13/2024 acceptable for procedure Prior echo in 2021 showing EF of 65% Plan for general anesthesia with LMA Medications/Allergies Home Medications ?Medication ?Instructions ?Recorded ?Confirmed ?Last Taken ?Type albuterol sulfate 90 mcg/actuation 2 puff inhalation Q4H PRN 06/17/19 11/04/24 10/22/24 History aerosol inhaler (ProAir HFA) Shortness Of Breath Or Wheezing cholecalciferol (vitamin D3) 125 125 mcg PO DAILY 06/17/19 11/04/24 11/03/24 History mcg (5,000 unit) tablet (Vitamin D3) clonazepam 0.5 mg tablet (Klonopin) 0.5 mg PO BID 06/17/19 11/04/24 11/04/24 13:11 History nortriptyline 50 mg capsule 50 mg PO QPM 06/17/19 11/04/24 11/04/24 History pantoprazole 40 mg tablet,delayed 40 mg PO DAILY 06/17/19 11/04/24 11/04/24 History release (Protonix) venlafaxine 150 mg 150 mg PO BEDTIME 06/17/19 11/04/24 11/03/24 History capsule,extended release 24 hr (Effexor XR) ferrous sulfate 325 mg (65 mg 325 mg PO DAILY 10/05/19 11/04/24 10/22/24 History iron) tablet (Feosol) gabapentin 300 mg capsule 900 mg PO TID 10/18/20 11/04/24 11/04/24 History clopidogrel 75 mg tablet 75 mg PO DAILY 05/23/23 11/04/24 11/03/24 History metoprolol tartrate 25 mg tablet 25 mg PO BID 05/23/23 11/04/24 10/23/24 History upadacitinib 15 mg tablet,extended 15 mg PO DAILY #30 tabs 08/13/24 11/04/24 11/03/24 Rx release 24 hr (Rinvoq) amlodipine 5 mg tablet 5 mg PO DAILY 10/07/24 11/04/24 11/03/24 History leflunomide 20 mg tablet 20 mg PO DAILY 10/07/24 11/04/24 11/03/24 History tramadol 50 mg tablet 50 mg PO Q6H PRN pain #30 tabs 10/20/24 11/04/24 10/22/24 Rx felodipine 10 mg tablet,extended 10 mg PO DAILY 10/23/24 11/04/24 11/04/24 History release 24 hr tramadol 50 mg tablet 50 mg PO Q6H #30 tabs 10/23/24 11/04/24 Unknown Rx diclofenac sodium 75 mg 75 mg PO Q12H PRN moderate to 11/02/24 11/04/24 11/03/24 Rx tablet,delayed release severe pain as needed #60 tabs Allergies Allergy/AdvReac Type Severity Reaction Status Date / Time cephalexin (From Keflex) Allergy ALGY-Bliste Verified 11/03/24 13:43 r Cephalosporins Allergy blisters Verified 11/03/24 13:43 in mouth and throat oxycodone (From Percodan) Allergy rash Verified 11/03/24 13:43 PFS Anesthesia Medical History High risk medication use Immunization counseling Spondylolisthesis, lumbar region Intervertebral disc disorder with radiculopathy of lumbar region Intervertebral disc disorder with radiculopathy of lumbosacral region High risk medication use Chronic migraine without aura, intractable, with status migrainosus Rheumatoid arthritis, seropositive, multiple sites Surgical History History of decompression of ulnar nerve 07/29/2008 Dr. Riley Dos Santos: Right History of hysterectomy (~1999) non cancerous, ovaries remain History of arthroplasty of right knee (~10/2017) total, Dr. Martin Family History Mother Lung cancer age 58 Father Lupus anticoagulant disorder CAD (coronary artery disease) age 70 Grandmother CAD (coronary artery disease) Grandfather CAD (coronary artery disease) Social History Smoking and tobacco/nicotine status: current every day tobacco/nicotine user cigarettes Alcohol intake: never Substance/Drug Use: current Caregiver/support person: Yes Household members: spouse Marital status: Current occupational status: disabled Data Anesthesia Cardiac Studies: Echocardiogram 12/01/21 Holter Monitor 09/12/21
--- NOTE | 2024-11-04 13:48 | W.PM.OPSUD ---
Surgery/Procedure H&P Update DATE OF PROCEDURE: November 04, 2024 DATE H&P PERFORMED: 11/03/24 H&P UPDATE INFORMATION: I have reviewed H&P completed within last 30 days, I have examined patient prior to procedure and No changes to prior documentation PREOP DIAGNOSIS: infected surgical wound PLANNED PROCEDURE: Operation Date: 11/04/24 14:25 Proposed Procedures p Incision & Drainage LEFT Hand(Left) - Srinivasa Rojas MD
[2024-11-04] MEDS: fentaNYL 50 mcg/mL INJ 2mL IVP (15:10)
--- NOTE | 2024-11-04 15:15 | P.OP_ITS ---
Operative Report Date of procedure: November 04, 2024 Surgeon: Srinivasa Rojas MD Procedure: Preoperative diagnosis: Infected postoperative wound left hand Postoperative diagnosis: Same Procedure: Irrigation debridement of left palm infection/tenosynovitis Surgeon: Srinivasa Rojas MD Anesthesia: General Specimens: Anaerobic and aerobic cultures were obtained Indications: Betty is a 64-year white female who approximately 1 week ago had I&D of a surgical wound that had become infected. Subsequently distal incision was made solution was run through the tendon sheath irrigating and debriding it out. Patient placed on oral antibiotics and was sent to home in order to follow-up. Few days later wound appear to be healing well and erythema and drainage was diminishing. Patient was continuing with oral antibiotics follow- up in 1 week. Patient follows up in 1 week her wound is now open and draining again with tannish opaque liquid. Fingers inflamed and swollen again. Therefore repeat irrigation debridement has been decided upon. Also at this time sensitivities had come back for the strep agalactia and the oral antibiotics was not sufficient at that time. Therefore the patient will also be admitted for IV antibiotics after this irrigation debridement. All risk benefits treatment alternatives were discussed with the patient she was agreeable to this at this time. Procedure: After obtaining her consent patient taken the operating room on her [facility] and had general anesthetic administered. Once static was achieved a pneumatic cuffs placed on proximal left arm left arm was prepped and draped usual fashion. After surgical timeout sutures were removed from the mid palmar row and in the distal left long finger 1. Milking of the finger found that more purulent material was found coming out. Samples of this were obtained for cultures. At this point patient was given IV vancomycin to the infecting organism is sensitive to. A 16-gauge catheter was placed within the distal tendon sheath and copious amounts of irrigation with vancomycin and within it was washed through this until all fluids remain clear. Intermittently there is milking of the tendon sheath to identify any further purulent material. Nonviable tissue was sharply debrided from the mid palmar incision. Once irrigation was completed stay sutures of the 3-0 Prolene interrupted sutures were placed in each of the wounds. Wounds were then dressed with Xeroform gauze sterile gauze dressing sterile fluffs Kerlix wrap and an Toro wrap for compression. Patient was waken chest recovery room stable condition
--- NOTE | 2024-11-04 15:47 | PM.CONSULT ---
Providers/Reason For Consult Consulting Physician/Specialty*: Internal Medicine/ Zara MD Vida Reason for Consult*: Medical management Attending Physician: Srinivasa Rojas MD Primary Care Provider: Chapin Julio MD History of Present Illness History of Present Illness Nimco Chaparro is a 64 year old female With past medical history rheumatoid arthritis seropositive, chronic migraines gets Botox injections with neurology presented to the hospital as an outpatient for debridement and irrigation of left pulm infection postoperative wound. Originally she had surgery done on 08 October for left carpal tunnel syndrome and left trigger finger. Thereafter she developed a postop wound infection and came back to the hospital on 10/22 for open irrigation debridement. Cultures were obtained. Thereafter she was sent home. Patient returned today to the OR for another irrigation debridement of left palm infection tenosynovitis. Medicine has been requested to follow along. Wound cultures were obtained today. Her last cultures from 10/23 show strep agalactiae sensitive to vancomycin cefepime ceftriaxone. Resistant to clindamycin and tetracycline. Medications/Allergies Home Medications ?Medication ?Instructions ?Recorded ?Confirmed ?Last Taken ?Type albuterol sulfate 90 mcg/actuation 2 puff inhalation Q4H PRN 06/17/19 11/04/24 10/22/24 History aerosol inhaler (ProAir HFA) Shortness Of Breath Or Wheezing cholecalciferol (vitamin D3) 125 125 mcg PO DAILY 06/17/19 11/04/24 11/03/24 History mcg (5,000 unit) tablet (Vitamin D3) clonazepam 0.5 mg tablet (Klonopin) 0.5 mg PO BID 06/17/19 11/04/24 11/04/24 13:11 History nortriptyline 50 mg capsule 50 mg PO QPM 06/17/19 11/04/24 11/04/24 History pantoprazole 40 mg tablet,delayed 40 mg PO DAILY 06/17/19 11/04/24 11/04/24 History release (Protonix) venlafaxine 150 mg 150 mg PO BEDTIME 06/17/19 11/04/24 11/03/24 History capsule,extended release 24 hr (Effexor XR) ferrous sulfate 325 mg (65 mg 325 mg PO DAILY 10/05/19 11/04/24 10/22/24 History iron) tablet (Feosol) gabapentin 300 mg capsule 900 mg PO TID 10/18/20 11/04/24 11/04/24 History clopidogrel 75 mg tablet 75 mg PO DAILY 05/23/23 11/04/24 11/03/24 History metoprolol tartrate 25 mg tablet 25 mg PO BID 05/23/23 11/04/24 10/23/24 History upadacitinib 15 mg tablet,extended 15 mg PO DAILY #30 tabs 08/13/24 11/04/24 11/03/24 Rx release 24 hr (Rinvoq) amlodipine 5 mg tablet 5 mg PO DAILY 10/07/24 11/04/24 11/03/24 History leflunomide 20 mg tablet 20 mg PO DAILY 10/07/24 11/04/24 11/03/24 History tramadol 50 mg tablet 50 mg PO Q6H PRN pain #30 tabs 10/20/24 11/04/24 10/22/24 Rx felodipine 10 mg tablet,extended 10 mg PO DAILY 10/23/24 11/04/24 11/04/24 History release 24 hr tramadol 50 mg tablet 50 mg PO Q6H #30 tabs 10/23/24 11/04/24 Unknown Rx diclofenac sodium 75 mg 75 mg PO Q12H PRN moderate to 11/02/24 11/04/24 11/03/24 Rx tablet,delayed release severe pain as needed #60 tabs Allergies Allergy/AdvReac Type Severity Reaction Status Date / Time cephalexin (From Keflex) Allergy ALGY-Bliste Verified 11/03/24 13:43 r Cephalosporins Allergy blisters Verified 11/03/24 13:43 in mouth and throat oxycodone (From Percodan) Allergy rash Verified 11/03/24 13:43 Current Medications Generic Name Dose Route Start Last Admin Trade Name Freq PRN Reason Stop Dose Admin Fentanyl 50 mcg 11/04/24 13:00 11/04/24 15:10 Fentanyl 50 Mcg/Ml Inj 2ml IVP 11/05/24 13:00 50 mcg Q5M PRN Administration Pain level 6-10 PACU Phase I Sodium Chloride 1,000 mls @ 30 mls/hr 11/04/24 13:00 11/04/24 13:35 Sodium Chloride 0.9% IV 11/05/24 12:59 30 mls/hr .Q24H RENNY Administration PFSH Acute PFSH: Medical History High risk medication use Immunization counseling Spondylolisthesis, lumbar region Intervertebral disc disorder with radiculopathy of lumbar region Intervertebral disc disorder with radiculopathy of lumbosacral region High risk medication use Chronic migraine without aura, intractable, with status migrainosus Rheumatoid arthritis, seropositive, multiple sites Surgical History History of decompression of ulnar nerve 07/29/2008 Dr. Riley Dos Santos: Right History of hysterectomy (~1999) non cancerous, ovaries remain History of arthroplasty of right knee (~10/2017) total, Dr. Martin Family History Mother Lung cancer age 58 Father Lupus anticoagulant disorder CAD (coronary artery disease) age 70 Grandmother CAD (coronary artery disease) Grandfather CAD (coronary artery disease) Social History Smoking and tobacco/nicotine status: current every day tobacco/nicotine user cigarettes Alcohol intake: never Substance/Drug Use: current Caregiver/support person: Yes Household members: spouse Marital status: Current occupational status: disabled Vitals/I&O/Wt Last Vital Signs Temp 97.3 F L 11/04/24 15:20 Pulse 82 11/04/24 15:20 Resp 16 11/04/24 15:20 BP 167/98 11/04/24 15:20 Pulse Ox 96 11/04/24 15:20 O2 Del Method Room Air 11/04/24 15:20 O2 Flow Rate 8 11/04/24 15:06 11/04/24 11/04/24 11/04/24 06:59 14:59 22:59 Intake Total 0 / 0 Output Total 0 / 0 Balance 0 / 0 Weight last 48 hrs Weight 73.482 kg Physical Exam Narrative: General: Alert oriented x3, patient seen in bed crying in pain stating it feels like someone cutting her hand with a knife HEENT: Normocephalic, atraumatic, EOMI, breathing room air. Cardio: Regular rate rhythm, normal S1-S2, Respiratory: Clear to auscultation bilaterally no wheezes or rhonchi GI: Abdomen soft, nontender, bowel sounds + Extremities: No edema bilateral extremities Left hand wrapped in surgical bandage. Data 11/04/24 16:20 11/04/24 16:20 A&P Assessment and plan (1) High risk medication use: (2) Infected surgical wound: (3) Postoperative wound infection of left hip: (4) Immunization counseling: (5) Rheumatoid arthritis, seropositive, multiple sites: (6) Postoperative wound dehiscence: (7) Chronic migraine without aura, intractable, with status migrainosus: (8) Status post carpal tunnel release of both wrists: Plan #Left hand postop wound infection, left carpal tunnel with trigger finger surgery October 08, 2024 #Patient's status post irrigation debridement second time 11/04/24 #Rheumatoid arthritis #Immunocompromise status, #History of bilateral carpal tunnel syndrome status post surgery #Chronic migraine -Check CBC CMP magnesium, CRP, ESR, blood cultures ? Wound cultures obtained intraoperatively ? I will treat with broad-spectrum antibiotics with vancomycin and Zosyn at this time ? Further recommendations to be made after culture data available ? Patient does have immunocompromise status. She she is on upadacitinib as an outpatient ? Continue pantoprazole nortriptyline, metoprolol tartrate, venlafaxine, Plavix, amlodipine ? Continue gentle fluid hydration normal saline 75 cc/h - While patient is on IV antibiotics and we are waiting for wound healing I would recommend to stop Rinvoq and leflunomide temporarily. Discussed with patient's manager gallery over the phone as well. He agrees with this. He recommends that after the wound heals before resuming those medications to follow-up with them as an outpatient. If in the meantime patient does develop an arthritis flare we will use NSAIDs and/or steroids at the time. I would like to avoid steroids if possible secondary to impaired wound healing. - place on morphine 4 mg iv q4h pain - pt allergic to oxycodone, will hold off on that for now. - continue ketoralac but cautious use secondary to CKD, Cr 1.0 today, will keep monitroing. - Hypokalemia: K 2.9, order Kphos ? Medicine will continue to follow. ? Thank you for consultation Full code DVT prophylaxis: Heparin SQ twice daily PDMP PDMP Reviewed: Not Reviewed Consult Attestations Medical Necessity Statement: Requires IV antibiotics at this time in immunocompromised patient with unresolving postop wound infection status post debridement x 2. Will need to stay in the hospital with IV antibiotics until culture data becomes available. Diagnoses High risk medication use Z79.899 Infected surgical wound T81.49XA Postoperative wound infection of left hip T81.49XA Immunization counseling Z71.89 Rheumatoid arthritis, seropositive, multiple sites M05.79 Postoperative wound dehiscence, subsequent encounter T81.31XD Encounter type: subsequent encounter Chronic migraine without aura, intractable, with status migrainosus G43.711 Status post carpal tunnel release of both wrists Z98.890
[2024-11-04 16:35] LABS: Hematocrit 33.0 % (36-47); Hemoglobin 11.10 g/dL (11.27-16.99); Mean Corpuscular HGB Conc 33.6 g/dL (30-55); Mean Corpuscular Hemoglobin 30.9 pg (27-33); Mean Corpuscular Volume 91.9 fl (85-98); Nucleated Red Blood Cells % 0 %; Platelet Count 253 10^3/cmm (157-399); Red Blood Count 3.59 10^6/uL (3.85-5.65); White Blood Count 9.15 10^3/uL (3.29-11.43)
[2024-11-04 16:54] LABS: Alanine Aminotransferase 27 U/L (0-33); Albumin Level 3.2 g/dL (3.5-5.2); Alkaline Phosphatase 120 U/L (35-105); Anion Gap 15.9 (5-19); Aspartate Amino Transferase 32 U/L (0-32); Blood Urea Nitrogen 16 mg/dL (8-23); Calcium 8.6 mg/dL (8.5-10.5); Carbon Dioxide 25 mmol/L (22-29); Chloride 96 mmol/L (98-107); Creatinine Clr Calc Pharmacy 55.5554; Globulin 3.6 g/dL (1.3-4.6); Glucose 134 mg/dL (65-115); Magnesium 1.8 mg/dL (1.7-2.3); Osmolality Calculated 281 mOsm/kg (285-295); Sodium 134 mmol/L (136-145); Total Protein 6.8 g/dL (6.6-8.7)
[2024-11-04 16:56] LABS: Potassium 2.9 mmol/L (3.5-5.1)
[2024-11-04 17:01] LABS: Procalcitonin 0.06 ng/mL (0-0.5)
[2024-11-04] MEDS: lidocaine 1% 5 ML in potassium chloride premix 100 ML 52.5 ML IV ×2 (18:11→20:19)
--- NOTE | 2024-11-04 18:18 | PHA.VACGOAL ---
Vancomycin Goal - Goal Vancomycin Goal:: 10-15 mg/L Vancomycin Indication:: SSTI - Therapy Current therapy:: Pip/Tazo Day of therpy:: Day [1]of [] . Actual body weight (kg): 73.482 kg - Data Labs: WBC 9.15 10^3/uL (3.29-11.43) 11/04/24 16:20 RBC 3.59 10^6/uL (3.85-5.65) L 11/04/24 16:20 Hgb 11.10 g/dL (11.27-16.99) L 11/04/24 16:20 Hct 33.0 % (36-47) L 11/04/24 16:20 MCV 91.9 fl (85-98) 11/04/24 16:20 MCH 30.9 pg (27-33) 11/04/24 16:20 MCHC 33.6 g/dL (30-55) 11/04/24 16:20 RDW 14.4 % (12.1-15.1) 11/04/24 16:20 Sodium 134 mmol/L (136-145) L 11/04/24 16:20 Potassium 2.9 mmol/L (3.5-5.1) L 11/04/24 16:20 Chloride 96 mmol/L (98-107) L 11/04/24 16:20 Carbon Dioxide 25 mmol/L (22-29) 11/04/24 16:20 Anion Gap 15.9 (5-19) 11/04/24 16:20 BUN 16 mg/dL (8-23) 11/04/24 16:20 Creatinine 1.0 mg/dL (0.5-0.9) H 11/04/24 16:20 GFR Calculation 55.5 mL/min (90-130) L 11/04/24 16:20 Treatment plan:: new consult Regimen:: New start vancomycin for Left hand postop wound infection. No prior vancomycin history found. Started on maintenance dose of 1000 mg q18h.
[2024-11-04] MEDS: venlafaxine ER (24HR) 150 mg Capsule PO (20:20)
[2024-11-04] MEDS: piperacillin-tazobactam 3.375 GM in sodium chloride 0.9% (plus) 50 ML IV (22:39)
[2024-11-05] VITALS (10 sets, daily range): BP systolic 127–172; BP diastolic 79–88; PULSE 63–76; RESP 16–18; TEMP 36.4–36.8; O2SAT 93–95
[2024-11-05] MEDS: morphine 4 mg/mL SDV 1 mL IVP ×4 (00:53→22:05)
[2024-11-05] MEDS: ondansetron 2 mg/ML SDV 2 mL 4 MG IVP ×2 (00:54→22:04)
[2024-11-05] MEDS: VANCOMYCIN ADD-Vantage 1,000 MG in 0.9% NaCl ADD-Vantage 250 ML 250 MG IV ×2 (02:50→20:15)
[2024-11-05 05:24] LABS: Hematocrit 29.4 % (36-47); Hemoglobin 9.70 g/dL (11.27-16.99); Mean Corpuscular HGB Conc 33.0 g/dL (30-55); Mean Corpuscular Hemoglobin 30.9 pg (27-33); Mean Corpuscular Volume 93.6 fl (85-98); Nucleated Red Blood Cells % 0 %; Platelet Count 229 10^3/cmm (157-399); Red Blood Count 3.14 10^6/uL (3.85-5.65); White Blood Count 7.41 10^3/uL (3.29-11.43)
[2024-11-05 05:46] LABS: Alanine Aminotransferase 24 U/L (0-33); Albumin Level 2.8 g/dL (3.5-5.2); Alkaline Phosphatase 102 U/L (35-105); Anion Gap 15.8 (5-19); Aspartate Amino Transferase 27 U/L (0-32); Blood Urea Nitrogen 14 mg/dL (8-23); Calcium 8.3 mg/dL (8.5-10.5); Carbon Dioxide 22 mmol/L (22-29); Chloride 102 mmol/L (98-107); Creatinine Clr Calc Pharmacy 52.1079; Globulin 3.1 g/dL (1.3-4.6); Glucose 94 mg/dL (65-115); Osmolality Calculated 282 mOsm/kg (285-295); Potassium 3.8 mmol/L (3.5-5.1); Sodium 136 mmol/L (136-145); Total Protein 5.9 g/dL (6.6-8.7)
[2024-11-05] MEDS: piperacillin-tazobactam 3.375 GM in sodium chloride 0.9% (plus) 50 ML IV ×3 (05:56→21:35)
[2024-11-05] MEDS: ferrous sulfate EC 325 mg Tablet PO (07:41)
--- NOTE | 2024-11-05 13:23 | P.PN_ITS ---
Subjective 2 Subjective: seen today no acute events overnight pending cultures cr1.1 today Vitals/I&O/Wt Last Vital Signs Temp 97.5 F L 11/05/24 11:56 Pulse 63 11/05/24 11:56 Resp 17 11/05/24 11:56 BP 127/80 11/05/24 11:56 Pulse Ox 94 11/05/24 11:56 O2 Del Method Room Air 11/05/24 11:56 O2 Flow Rate 8 11/04/24 15:06 11/04/24 11/05/24 11/05/24 22:59 06:59 14:59 Intake Total 1940 / 1940 300 / 2240 530 / 530 Output Total 300 / 300 500 / 800 200 / 200 Balance 1640 / 1640 -200 / 1440 330 / 330 Weight last 48 hrs Weight 78.528 kg Weight 73.482 kg Weight 73.482 kg Physical Exam 2 Narrative: General: Alert oriented x3, HEENT: Normocephalic, atraumatic, EOMI, breathing room air. Cardio: Regular rate rhythm, normal S1-S2, Respiratory: Clear to auscultation bilaterally no wheezes or rhonchi GI: Abdomen soft, nontender, bowel sounds + Extremities: No edema bilateral extremities Left hand wrapped in surgical bandage. Data 11/05/24 05:04 11/05/24 05:04 Micro: Microbiology 11/04/24 14:36 Gram Stain - Final Hand - #1 Anaerobic Culture - Preliminary Wound Culture - Final Strep agalactiae - (group b) 11/04/24 16:20 Blood Culture - Preliminary Blood SPECIMEN COLLECTED 11/04/24 16:23 Blood Culture - Preliminary Blood SPECIMEN COLLECTED A&P Assessment and plan (1) High risk medication use: (2) Infected surgical wound: (3) Postoperative wound infection of left hip: (4) Immunization counseling: (5) Rheumatoid arthritis, seropositive, multiple sites: (6) Postoperative wound dehiscence: (7) Chronic migraine without aura, intractable, with status migrainosus: (8) Status post carpal tunnel release of both wrists: Plan #Left hand postop wound infection, left carpal tunnel with trigger finger surgery October 08, 2024 #Patient's status post irrigation debridement second time 11/04/24 #Rheumatoid arthritis #Immunocompromise status, #History of bilateral carpal tunnel syndrome status post surgery #Chronic migraine -Check CBC CMP magnesium, CRP, ESR, blood cultures ? Wound cultures obtained intraoperatively ? I will treat with broad-spectrum antibiotics with vancomycin and Zosyn at this time ? Further recommendations to be made after culture data available ? Patient does have immunocompromise status. She she is on upadacitinib as an outpatient ? Continue pantoprazole nortriptyline, metoprolol tartrate, venlafaxine, Plavix, amlodipine ? Continue gentle fluid hydration normal saline 75 cc/h - While patient is on IV antibiotics and we are waiting for wound healing I would recommend to stop Rinvoq and leflunomide temporarily. Discussed with patient's dump truck driver off highway over the phone as well. He agrees with this. He recommends that after the wound heals before resuming those medications to follow-up with them as an outpatient. If in the meantime patient does develop an arthritis flare we will use NSAIDs and/or steroids at the time. I would like to avoid steroids if possible secondary to impaired wound healing. - place on morphine 4 mg iv q4h pain - pt allergic to oxycodone, will hold off on that for now. - continue ketoralac but cautious use secondary to CKD, Cr 1.0 today, will keep monitroing. - Hypokalemia: K 2.9, order Kphos ? Medicine will continue to follow. ? Thank you for consultation Full code DVT prophylaxis: Heparin SQ twice daily 11/05/2024 seen this morning continue broad spectrum iv abx today continue morphine for pain restart tramadol stop toradol patient's cr 1.1 today await cultures will discuss with ID prior to dc PDMP PDMP Reviewed: Not Reviewed Attestations 2 Medical Necessity Statement*: Requires IV antibiotics at this time in immunocompromised patient with unresolving postop wound infection status post debridement x 2. Will need to stay in the hospital with IV antibiotics until culture data becomes available. Diagnoses High risk medication use Z79.899 Infected surgical wound T81.49XA Postoperative wound infection of left hip T81.49XA Immunization counseling Z71.89 Rheumatoid arthritis, seropositive, multiple sites M05.79 Postoperative wound dehiscence, subsequent encounter T81.31XD Encounter type: subsequent encounter Chronic migraine without aura, intractable, with status migrainosus G43.711 Status post carpal tunnel release of both wrists Z98.890
--- NOTE | 2024-11-05 16:06 | P.PN_ITS ---
Subjective 2 Subjective: Mrs. Chaparro is postoperative day 1 after irrigation and debridement of the left palm infection and tenosynovitis. Patient states that she is doing well overall and feeling less discomfort than she was preoperatively. She has been receiving IV antibiotics while in-house. Cultures obtained intraoperatively are still pending at this time. Medical services has been consulted and is following with the patient. She remains afebrile and denies any symptoms of systemic infection such as body aches, nausea, vomiting, chills or other systemic symptoms. Medical service has ordered blood cultures, these are pending as well. Bulky intact. Postoperative dressing. Medications: Reviewed: Yes Vitals/I&O/Wt Last Vital Signs Temp 98.0 F 11/05/24 15:39 Pulse 75 11/05/24 15:39 Resp 16 11/05/24 15:39 BP 156/85 11/05/24 15:39 Pulse Ox 95 11/05/24 15:39 O2 Del Method Room Air 11/05/24 15:39 O2 Flow Rate 8 11/04/24 15:06 11/05/24 11/05/24 11/05/24 06:59 14:59 22:59 Intake Total 300 / 2240 1010 / 1010 Output Total 500 / 800 200 / 200 Balance -200 / 1440 810 / 810 Weight last 48 hrs Weight 173 lb 2 oz Weight 162 lb Weight 162 lb Physical Exam 2 Const: COMMON NORMALS: no acute distress, average body habitus, patient oriented x3, no limitations, alert and well nourished GENERAL APPEARANCE: c ooperative; not anxious and not combative ORIENTATION/CONSCIOUSNESS: Yes awake, Yes oriented to person, Yes oriented to place and Yes oriented to time HENMT: COMMON NORMALS: normocephalic and atraumatic HEAD & SCALP: n ormocephalic and atraumatic Resp: COMMON NORMALS: normal respiratory effort Extremity: LEFT UPPER EXTREMITY: Yes wrist Left wrist: Yes neurovascular exam (2+ radial pulse.) and Yes hand & digits (Bulky postoperative dressings removed.) Left hand and digits: Yes inspection (Incisions approximate. No active drainage. Erythema noted. ), Yes palpation (Moderate TTP to palmar and long finger incision), Yes ROM (Able to form loose fist. Able to wiggle fingers.) and Yes neurovascular exam (Sensation intact to light touch. Rapid cap refill.) Neuro: COMMON NORMALS: patient oriented x3 SENSORIUM/ORIENTATION: Yes alert, Yes oriented to person, Yes oriented to place and Yes oriented to time Psych: ATTITUDE: Yes engaged Skin: COMMON NORMALS: no rashes or lesions noted, turgor normal and no jaundice GENERAL SKIN EXAM: no rashes or lesions noted and turgor normal Data 11/05/24 05:04 11/05/24 05:04 Micro: Microbiology 11/04/24 14:36 Gram Stain - Final Hand - #1 Anaerobic Culture - Preliminary Wound Culture - Final Strep agalactiae - (group b) 11/04/24 16:20 Blood Culture - Preliminary Blood SPECIMEN COLLECTED 11/04/24 16:23 Blood Culture - Preliminary Blood SPECIMEN COLLECTED A&P Assessment and plan (1) Infected surgical wound: The postoperative dressing is removed today. Incision sites were cleansed and new, sterile dressing was applied. Patient tolerated dressing change well. No active drainage was noted at the time of dressing change. Patient remains to be afebrile. White blood cells are within normal limits at this point. Intraoperative cultures and blood cultures are still pending at this point. Patient is being comanaged by medical services, and it is that recommendation that she remain inpatient until at least preliminary culture results can be obtained for sensitivities. This was discussed extensively with the patient. She verbalized understanding. We will continue to monitor her and see her while she remains in house. At this time, the medical services believe she may require IV antibiotics even after discharge, this will be arranged prior to her discharge. Continue medications as needed for pain. (2) Postoperative wound dehiscence: PDMP PDMP Reviewed: Not Reviewed Attestations 2 Medical Necessity Statement*: Patient care will likely require to cross 2 midnight stay, due to infection and need for IV antibiotics. The patient is also being followed by medical services. Discharge planning pending. Coding Level of Care Code Acute Code for g Fwd Diagnoses Infected surgical wound T81.49XA Postoperative wound dehiscence, subsequent encounter T81.31XD Encounter type: subsequent encounter
[2024-11-05] MEDS: venlafaxine ER (24HR) 150 mg Capsule PO (20:16)
[2024-11-06 03:23] VITALS: BP 149/76; PULSE 68; RESP 17; TEMP 36.8; O2SAT 93
[2024-11-06] MEDS: piperacillin-tazobactam 3.375 GM in sodium chloride 0.9% (plus) 50 ML IV (05:40)
[2024-11-06 07:27] VITALS: BP 123/71; PULSE 78; RESP 16; TEMP 37.1; O2SAT 98
[2024-11-06] MEDS: ferrous sulfate EC 325 mg Tablet PO (08:07)
--- NOTE | 2024-11-06 08:26 | PC.SOCIAL ---
IMM Update Pg. 2 of IMM Updated and copy provided at bedside.
[2024-11-06 09:25] LABS: Anion Gap 15.9 (5-19); Blood Urea Nitrogen 10 mg/dL (8-23); Calcium 8.6 mg/dL (8.5-10.5); Carbon Dioxide 24 mmol/L (22-29); Chloride 96 mmol/L (98-107); Creatinine Clr Calc Pharmacy 57.3386; Glucose 128 mg/dL (65-115); Osmolality Calculated 275 mOsm/kg (285-295); Potassium 3.9 mmol/L (3.5-5.1); Sodium 132 mmol/L (136-145)
--- NOTE | 2024-11-06 09:39 | P.PN_ITS ---
Subjective 2 Subjective: Patient is postop day 2 after having irrigation debridement of left hand surgical wound infection. Patient indicating she is feeling much better. Presently on IV antibiotics. Medical service would like to see culture results since make plans for outpatient antibiotics whether that be IV or oral. Patient has remained afebrile Medications: Reviewed: Yes Vitals/I&O/Wt Last Vital Signs Temp 98.8 F 11/06/24 07:27 Pulse 78 11/06/24 07:27 Resp 16 11/06/24 07:27 BP 123/71 11/06/24 07:27 Pulse Ox 98 11/06/24 07:27 O2 Del Method Room Air 11/06/24 07:27 O2 Flow Rate 8 11/04/24 15:06 11/05/24 11/06/24 11/06/24 22:59 06:59 14:59 Intake Total 640 / 1650 290 / 1940 480 / 480 Output Total 1200 / 1400 400 / 1800 Balance -560 / 250 -110 / 140 480 / 480 Weight last 48 hrs Weight 173 lb 4 oz Weight 173 lb 2 oz Weight 162 lb Weight 162 lb Physical Exam 2 Narrative: On exam dressings are in place with no drainage going through. She demonstrates good motion of her fingers and good sensation to distal fingertips. Data 11/05/24 05:04 11/06/24 08:57 Micro: Microbiology 11/04/24 16:23 Blood Culture - Preliminary Blood NEGATIVE TO DATE 11/04/24 16:20 Blood Culture - Preliminary Blood NEGATIVE TO DATE 11/04/24 14:36 Gram Stain - Final Hand - #1 Anaerobic Culture - Preliminary Wound Culture - Final Strep agalactiae - (group b) A&P Assessment and plan (1) Infected surgical wound: Patient recovering from surgical wound infection of left hand long finger. Plan Plan at this time is continuing with IV antibiotics. Gram stain is of come back on second set of cultures demonstrating the same strep agalactiae that was found in the first cultures. Sensitivities were done on the first cultures and therefore we have references for that. At this time I am awaiting the hospitalist to determine which antibiotics the patient should be discharged on. From a orthopedic standpoint if we can arrange for antibiotics whether it be IV or oral she is ready to be discharged from the hospital today. However, it is important to make sure she is covered appropriately for her hand infection at this time. PDMP PDMP Reviewed: Not Reviewed Attestations 2 Medical Necessity Statement*: Continued need for IV antibiotics, pain control Coding Level of Care Code 07584 Diagnoses Infected surgical wound T81.49XA
--- NOTE | 2024-11-06 10:01 | P.PN_ITS ---
Subjective 2 Subjective: seen this morning patient would like to go home she states she can come back for any follow up appoinments or IV infusions if needed but today she wants to leave. She has to be at her son's house by 2 pm Vitals/I&O/Wt Last Vital Signs Temp 98.8 F 11/06/24 07:27 Pulse 78 11/06/24 07:27 Resp 16 11/06/24 07:27 BP 123/71 11/06/24 07:27 Pulse Ox 98 11/06/24 07:27 O2 Del Method Room Air 11/06/24 07:27 O2 Flow Rate 8 11/04/24 15:06 11/05/24 11/06/24 11/06/24 22:59 06:59 14:59 Intake Total 640 / 1650 290 / 1940 530 / 530 Output Total 1200 / 1400 400 / 1800 Balance -560 / 250 -110 / 140 530 / 530 Weight last 48 hrs Weight 78.585 kg Weight 78.528 kg Weight 73.482 kg Weight 73.482 kg Physical Exam 2 Narrative: General: Alert oriented x3, HEENT: Normocephalic, atraumatic, EOMI, breathing room air. Cardio: Regular rate rhythm, normal S1-S2, Respiratory: Clear to auscultation bilaterally no wheezes or rhonchi GI: Abdomen soft, nontender, bowel sounds + Extremities: No edema bilateral extremities Left hand wrapped in surgical bandage. Able to move hand and has good sensation. Data 11/05/24 05:04 11/06/24 08:57 Micro: Microbiology 11/04/24 16:23 Blood Culture - Preliminary Blood NEGATIVE TO DATE 11/04/24 16:20 Blood Culture - Preliminary Blood NEGATIVE TO DATE 11/04/24 14:36 Gram Stain - Final Hand - #1 Anaerobic Culture - Preliminary Wound Culture - Final Strep agalactiae - (group b) A&P Assessment and plan (1) High risk medication use: (2) Infected surgical wound: (3) Postoperative wound infection of left hip: (4) Immunization counseling: (5) Rheumatoid arthritis, seropositive, multiple sites: (6) Postoperative wound dehiscence: (7) Chronic migraine without aura, intractable, with status migrainosus: (8) Status post carpal tunnel release of both wrists: Plan #Left hand postop wound infection, left carpal tunnel with trigger finger surgery October 08, 2024 #Patient's status post irrigation debridement second time 11/04/24 #Rheumatoid arthritis #Immunocompromise status, #History of bilateral carpal tunnel syndrome status post surgery #Chronic migraine -Check CBC CMP magnesium, CRP, ESR, blood cultures ? Wound cultures obtained intraoperatively ? I will treat with broad-spectrum antibiotics with vancomycin and Zosyn at this time ? Further recommendations to be made after culture data available ? Patient does have immunocompromise status. She she is on upadacitinib as an outpatient ? Continue pantoprazole nortriptyline, metoprolol tartrate, venlafaxine, Plavix, amlodipine ? Continue gentle fluid hydration normal saline 75 cc/h - While patient is on IV antibiotics and we are waiting for wound healing I would recommend to stop Rinvoq and leflunomide temporarily. Discussed with patient's workers compensation manager over the phone as well. He agrees with this. He recommends that after the wound heals before resuming those medications to follow-up with them as an outpatient. If in the meantime patient does develop an arthritis flare we will use NSAIDs and/or steroids at the time. I would like to avoid steroids if possible secondary to impaired wound healing. - place on morphine 4 mg iv q4h pain - pt allergic to oxycodone, will hold off on that for now. - continue ketoralac but cautious use secondary to CKD, Cr 1.0 today, will keep monitroing. - Hypokalemia: K 2.9, order Kphos ? Medicine will continue to follow. ? Thank you for consultation Full code DVT prophylaxis: Heparin SQ twice daily 11/05/2024 seen this morning continue broad spectrum iv abx today continue morphine for pain restart tramadol stop toradol patient's cr 1.1 today await cultures will discuss with ID prior to dc 11/06/2024 Recommend to hold leflunomide and rinvoq for 2 weeks till patient is on antibiotics Based on culture result and data available, any beta lactam antibiotic/penicillin would be drug of choice. I will order augmentin 875 BID x 14 days total. Patient to follow up with orthopedic surgery for further management Recommend wound care follow up at discharge and/or Infectious disease follow up. WBC count normal, patient afebrile Blood culures negative to date. Patient is wanting to go home. Pain management primary service Wound care instructions per primary service. Patient should return to ER and seek medical attention incase of any worsenin symptoms including but not limited to fever, warmth, redness to hand, increasing discharge. PDMP PDMP Reviewed: Not Reviewed Attestations 2 Medical Necessity Statement*: Defer to primary Diagnoses High risk medication use Z79.899 Infected surgical wound T81.49XA Postoperative wound infection of left hip T81.49XA Immunization counseling Z71.89 Rheumatoid arthritis, seropositive, multiple sites M05.79 Postoperative wound dehiscence, subsequent encounter T81.31XD Encounter type: subsequent encounter Chronic migraine without aura, intractable, with status migrainosus G43.711 Status post carpal tunnel release of both wrists Z98.890
[2024-11-06 11:06] VITALS: BP 149/84; PULSE 68; RESP 15; TEMP 36.6; O2SAT 96
--- NOTE | 2024-11-06 13:14 | PC.NURSE ---
Prescription called into [facility] [place].
[2024-11-06 15:22] VITALS: BP 149/84; PULSE 68; RESP 15; TEMP 36.6; O2SAT 96
== END 2024-11-06 14:35 | disposition home or self-care (01) ==
LOC: MEDSURG 15:17
PROVIDERS: Internal Medicine; Admitting Provider Orthopaedic Surgery; PCP Family Medicine; Visit Provider Orthopaedic Surgery
PROC: (CPT 26010; principal; 2024-11-04 14:15)
DX: T81.49XA Infection following a procedure, other surgical site, initial encounter (principal); Z79.899 Other long term (current) drug therapy; Z71.89 Other specified counseling; M05.79 Rheumatoid arthritis with rheumatoid factor of multiple sites without organ or systems involvement; T81.31XD Disruption of external operation (surgical) wound, not elsewhere classified, subsequent encounter; G43.711 Chronic migraine without aura, intractable, with status migrainosus; Z98.890 Other specified postprocedural states; M06.9 Rheumatoid arthritis, unspecified; F17.210 Nicotine dependence, cigarettes, uncomplicated; K21.9 Gastro-esophageal reflux disease without esophagitis; I10 Essential (primary) hypertension
CPT/HCPCS: 26010; 36415; 80048; 80053; 83735; 84145; 85025; 85651; 86140; 87040; 87070; 87075; 87205; 97165; G0378; J1885; J2270; J2371; J2405; J2543; J2704; J3010; J3370; J3480; J7030; J7050; J7613; J9999

== ENCOUNTER → 2024-11-10 12:59 | Outpatient (BNVA) | payer MEDICARE, SELFPAY | PROVIDERS: PCP Family Medicine; Visit Provider Orthopaedic Surgery | DX: T81.49XA Infection following a procedure, other surgical site, initial encounter (principal); Y83.8 Other surgical procedures as the cause of abnormal reaction of the patient, or of later complication, without mention of misadventure at the time of the procedure | CPT/HCPCS: 99024 ==

== ENCOUNTER → 2024-11-17 10:47 | Outpatient (BNVA) | payer MEDICARE, SELFPAY | PROVIDERS: PCP Family Medicine; Visit Provider Orthopaedic Surgery | DX: T81.31XD Disruption of external operation (surgical) wound, not elsewhere classified, subsequent encounter (principal); Y83.8 Other surgical procedures as the cause of abnormal reaction of the patient, or of later complication, without mention of misadventure at the time of the procedure | CPT/HCPCS: 99024 ==

== ENCOUNTER → 2024-11-27 09:45 | Outpatient (BNVA) | payer MEDICARE, SELFPAY | PROVIDERS: PCP Family Medicine; Visit Provider Orthopaedic Surgery | DX: T81.49XA Infection following a procedure, other surgical site, initial encounter (principal); Y83.8 Other surgical procedures as the cause of abnormal reaction of the patient, or of later complication, without mention of misadventure at the time of the procedure | CPT/HCPCS: 99024 ==

== ENCOUNTER → 2024-12-10 12:54 | Outpatient (BNVA) | payer MEDICARE, SELFPAY | PROVIDERS: PCP Family Medicine; Visit Provider Internal Medicine Rheumatology | DX: M05.79 Rheumatoid arthritis with rheumatoid factor of multiple sites without organ or systems involvement (principal); Z79.899 Other long term (current) drug therapy; Z71.85 Encounter for immunization safety counseling | CPT/HCPCS: 36415; 82306; 85025; 86704; 86803; 87340; 99214 ==

== ENCOUNTER → 2024-12-18 08:45 | Outpatient (BNVA) | payer MEDICARE, SELFPAY | PROVIDERS: PCP Family Medicine; Visit Provider Orthopaedic Surgery | DX: T81.49XA Infection following a procedure, other surgical site, initial encounter (principal); Y83.8 Other surgical procedures as the cause of abnormal reaction of the patient, or of later complication, without mention of misadventure at the time of the procedure | CPT/HCPCS: 99024 ==

== ENCOUNTER 2024-12-23 10:22 | Outpatient (RCR) | payer MEDICARE, SELFPAY | END 2025-01-03 23:59 | disposition home or self-care (01) | LOC: SOT 10:22 | PROVIDERS: PCP Family Medicine; Visit Provider Internal Medicine | DX: G56.02 Carpal tunnel syndrome, left upper limb (principal); M65.332 Trigger finger, left middle finger | CPT/HCPCS: 97166 ==

== ENCOUNTER 2025-01-04 05:00 | Outpatient (RCR) | payer MEDICARE, SELFPAY | END 2025-02-02 23:59 | disposition home or self-care (01) | LOC: SOT 05:00 | PROVIDERS: PCP Family Medicine; Visit Provider Internal Medicine | DX: G56.03 Carpal tunnel syndrome, bilateral upper limbs (principal); M65.332 Trigger finger, left middle finger | CPT/HCPCS: 97022; 97035; 97110; 97140 ==

== ENCOUNTER → 2025-01-29 07:57 | Outpatient (BNVA) | payer MEDICARE, SELFPAY | PROVIDERS: PCP Family Medicine; Visit Provider Podiatrist Foot & Ankle Surgery | DX: I73.9 Peripheral vascular disease, unspecified (principal); L60.0 Ingrowing nail; L60.3 Nail dystrophy | CPT/HCPCS: 11720; 99204 ==

== ENCOUNTER → 2025-02-15 08:37 | Outpatient (BNVA) | payer MEDICARE, SELFPAY | PROVIDERS: PCP Family Medicine; Visit Provider Orthopaedic Surgery | DX: M16.11 Unilateral primary osteoarthritis, right hip (principal) | CPT/HCPCS: 73502; 99214 ==

== ENCOUNTER → 2025-03-09 15:41 | Outpatient (BNVA) | payer MEDICARE, SELFPAY | PROVIDERS: PCP Family Medicine; Visit Provider Orthopaedic Surgery | DX: M47.816 Spondylosis without myelopathy or radiculopathy, lumbar region (principal); M51.16 Intervertebral disc disorders with radiculopathy, lumbar region; M43.16 Spondylolisthesis, lumbar region | CPT/HCPCS: 72110; 99203; 99214 ==

== ENCOUNTER → 2025-04-20 10:53 | Outpatient (BNVA) | payer MEDICARE, SELFPAY | PROVIDERS: PCP Family Medicine; Visit Provider Orthopaedic Surgery | DX: M43.16 Spondylolisthesis, lumbar region (principal) | CPT/HCPCS: 99213 ==

== ENCOUNTER → 2025-04-22 10:52 | Outpatient (BNVA) | payer MEDICARE, SELFPAY | PROVIDERS: PCP Family Medicine; Visit Provider Internal Medicine Rheumatology | DX: M05.79 Rheumatoid arthritis with rheumatoid factor of multiple sites without organ or systems involvement (principal); Z79.899 Other long term (current) drug therapy; Z71.85 Encounter for immunization safety counseling; J44.9 Chronic obstructive pulmonary disease, unspecified; F17.200 Nicotine dependence, unspecified, uncomplicated; I10 Essential (primary) hypertension | CPT/HCPCS: 85651; 99214 ==